=== PATIENT | female | born 1970 | race Hispanic/Latino ===

== ENCOUNTER 2016-10-09 20:12 | Emergency (ER) | payer MEDICAID, OTHER ==
[2016-10-09 20:13] VITALS: BMI 62.6
[2016-10-09 20:19] VITALS: RESP 16; TEMP 98.6
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
[2016-10-09 23:09] VITALS: BP 118/63; PULSE 85; O2SAT 99
--- NOTE | 2016-10-10 10:09 | RAD ---
HISTORY: pain COMPARISON: No prior. FINDINGS: BONES: For purposes of this report T12 will be considered with rudimentary ribs. A right C7 cervical rib is noted. No vertebral body fractures suggested. Trace mid thoracic segmental endplate ridging noted. DISC SPACES: Normal. SOFT TISSUES: Normal. OTHER FINDINGS: None. IMPRESSION: No fracture or lytic lesion. Minimal mid thoracic segmental spondylosis.
--- NOTE | 2016-10-10 14:49 | RAD ---
PROCEDURE: Cervical Spine Radiographs. HISTORY: Pain. COMPARISON: None. FINDINGS: BONES: Straightening of the normal cervical lordosis. No fracture. Dens Intact. C7 right cervical rib DISC SPACES: Normal. SOFT TISSUES: Normal. No prevertebral soft tissue swelling. OTHER FINDINGS: None. IMPRESSION: No fracture or subluxation. Mild cervical spine straightening consistent with spasm and/or positioning. Right C7 cervical rib
== END 2016-10-09 23:09 | disposition home or self-care (01) ==
LOC: ED 20:12
DX: S16.1XXA Strain of muscle, fascia and tendon at neck level, initial encounter (principal); V49.9XXA Car occupant (driver) (passenger) injured in unspecified traffic accident, initial encounter; M54.6 Pain in thoracic spine
CPT/HCPCS: 72040; 72070; 96372; 99285; J1885

== ENCOUNTER 2017-08-08 15:18 | Emergency (ER) | payer MEDICAID ==
[2017-08-08 15:45] VITALS: RESP 18; BMI 33.0
[2017-08-08] MEDS ORDERED: Multivitamin (MVI) 10 ML, Thiamine 100 MG, Folic Acid 1 MG in Sodium Chloride 0.9% 1,00... IV ONE (16:02)
[2017-08-08] MEDS ORDERED: Sodium Chloride 0.9% 500 ML IV STA (16:02)
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
[2017-08-08 17:02] LABS: PH,URINE 6.5 (4.7-8.0); URINE BILIRUBIN NEGATIVE (NEGATIVE); URINE BLOOD NEGATIVE (NEGATIVE); URINE GLUCOSE (UA) NEGATIVE (NEGATIVE); URINE LEUKOCYTE ESTERASE TRACE Leu/uL (NEGATIVE); URINE PROTEIN NEGATIVE mg/dL (<30 mg/dL); URINE UROBILINOGEN 0.2 E.U./dL (<1 E.U./dL)
[2017-08-08 17:09] LABS: URINE APPEARANCE CLEAR (CLEAR); URINE COLOR YELLOW (YELLOW)
[2017-08-08 17:14] LABS: URINE RBC NEGATIVE /hpf (0-2)
[2017-08-08 17:15] LABS: URINE BACTERIA FEW (NEG)
[2017-08-08 17:21] LABS: VENOUS BLOOD GAS PO2 68 mm/Hg (30-55); VENOUS BLOOD PH 7.46 (7.32-7.43)
[2017-08-08 17:21] LABS: BENZODIAZEPINES, UR NEGATIVE (NEGATIVE)
[2017-08-08 17:23] LABS: BASO # 0.03 K/mm3 (0.0-2.0); BASO % 0.5 % (0.0-3.0); EOS # 0.2 (0.0-0.7); EOS % 2.8 % (1.5-5.0); GRAN # 2.76 (1.4-6.5); GRAN % 48.4 % (50.0-68.0); LYMPH # 2.4 (1.2-3.4); LYMPH % 42.3 % (22.0-35.0); MEAN CELL VOLUME 90.4 fl (80.0-105.0); MEAN CORPUSCULAR HEMOGLOBIN 30.2 pg (25.0-35.0); MEAN CORPUSCULAR HGB CONC 33.4 g/dl (31.0-37.0); MEAN PLATELET VOLUME 10.3 fl (7.0-11.0); MONO # 0.3 (0.1-0.6); RBC 3.64 10^6/uL (3.5-6.1); RED CELL DISTRIBUTION WIDTH 14.2 % (11.5-14.5); WHITE BLOOD COUNT 5.7 10^3/ul (4.5-11.0)
[2017-08-08] MEDS ORDERED: cefTRIAXone 1 gm 1 GM/100 ML BAG IVPB STA (17:27)
[2017-08-08 17:30] LABS: BARBITURATES, UR NEGATIVE (NEGATIVE); OPIATES, UR NEGATIVE (NEGATIVE); PHENCYCLIDINE, UR NEGATIVE (NEGATIVE)
[2017-08-08 17:36] LABS: ACETAMINOPHEN < 10.0 ug/ml (10.0-20.0); SALICYLATE < 1 mg/dL (2.0-20.0)
[2017-08-08 17:43] LABS: ALB/GLOB RATIO 1.3 (1.1-1.8); ALBUMIN 3.7 g/dL (3.0-4.8); ALT/SGPT 79 U/L (7-56); AST/SGOT 89 U/L (14-36); BLOOD UREA NITROGEN 12 mg/dL (7-21); CALCIUM 8.7 mg/dL (8.4-10.5); GFR AFRICAN-AMERICAN > 60; GFR NON-AFRICAN AMERICAN > 60
--- NOTE | 2017-08-08 17:52 | CARD ---
APPROVED REPORT EKG Measurement Heart [id number] <Conclusion> Normal sinus rhythm Low voltage QRS Cannot rule out Anterior infarct, age undetermined Abnormal ECG
[2017-08-08] MEDS ORDERED: Potassium Chloride 20 mEq ER Tab PO STA (18:14)
[2017-08-08] MEDS ORDERED: Iohexol 350 MG/100 ML VIAL ONE (18:49)
--- NOTE | 2017-08-08 21:40 | ED PDOC ---
Physical Exam Vital Signs Reviewed: Yes Vital Signs Temp Pulse Resp BP Pulse Ox 08/08/17 15:45 98.2 F 89 18 146/77 95 Temperature: Afebrile Blood Pressure: Normal Pulse: Regular Respiratory Rate: Normal Appearance: Positive for: Well-Appearing, Non-Toxic, Comfortable Pain Distress: None Mental Status: Positive for: Alert and Oriented X 3 - Systems Exam Head: Present: Atraumatic, Normocephalic Pupils: Present: PERRL Extroacular Muscles: Present: EOMI Conjunctiva: Present: Normal. No: Icteric Mouth: Present: Moist Mucous Membranes. No: Drooling Neck: Present: Normal Range of Motion. No: Meningeal Signs, MIDLINE TENDERNESS , Paraspinal Tenderness Respiratory/Chest: Present: Clear to Auscultation, Good Air Exchange. No: Respiratory Distress, Accessory Muscle Use Cardiovascular: Present: Regular Rate and Rhythm, Normal S1, S2. No: Murmurs Abdomen: No: Tenderness, Distention, Peritoneal Signs Back: Present: Normal Inspection. No: Midline Tenderness Upper Extremity: Present: Normal Inspection. No: Cyanosis, Edema Lower Extremity: Present: Normal Inspection. No: Edema Neurological: Present: GCS=15, CN II-XII Intact, Speech Normal Skin: Present: Warm, Dry, Normal Color. No: Rashes Psychiatric: Present: Alert, Normal Insight, Depressed Mood (at times tearful but follows command with ease) Medical Decision Making ED Course and Treatment: 08/08/17 19:00 Case endorsed to me by Dr. Ram for pending CT/xray/lab results, awaiting medical clearance and pending final disposition. Patient presented to the Emergency department earlier today complaining of depression, suicidal ideation , dysuria and abdominal pain. Patient is currently resting in bed with no new complaints. 08/08/17 20:58 CT of head reviewed by radiologist reviewed, shows: FINDINGS: Brain: There is mild diffuse cerebral atrophy present, consistent with this patient's age.Areas of decreased attenuation noted within the periventricular and subcortical white matter likely related to chronic microangiopathic ischemic changes given the patient's stated age. No hemorrhage. Ventricles: Unremarkable. No ventriculomegaly. Bones/joints: Unremarkable. No acute fracture. Soft tissues: Unremarkable. Sinuses: Unremarkable as visualized. No acute sinusitis. Mastoid air cells: Unremarkable as visualized. No mastoid effusion. IMPRESSION: No evidence of acute intracranial hemorrhage. 08/08/17 20:58 CT of Abdomen/Pelvis reviewed by radiologist, shows: FINDINGS: Lung bases: Unremarkable. No mass. No consolidation. ABDOMEN: Liver: Hepatic steatosis. Hepatomegaly. Gallbladder and bile ducts: Cholecystectomy, No ductal dilation. Pancreas: Unremarkable. No ductal dilation. Spleen: Unremarkable. No splenomegaly. Adrenals: Unremarkable. Kidneys and ureters: Left renal hypodensity that cannot be accurately characterized on the current examination. No hydronephrosis. Stomach and bowel: Status post gastric bypass. PELVIS: Appendix: No findings to suggest acute appendicitis. Bladder: Partially contracted. Reproductive: 3.9 cm right adnexal cystic structure. 3.6 cm left adnexal cystic structure. ABDOMEN and PELVIS: Intraperitoneal space: Unremarkable. No free air. No drainable fluid collection. Bones/joints spondylosis. No dislocation. Soft tissues: Nodular foci are noted in the subcutaneous tissues of the bilateral lower quadrants. Correlate for subcutaneous injections versus infectious/inflammatory process. Vasculature: Unremarkable. No abdominal aortic aneurysm. Lymph nodes: Unremarkable. No enlarged lymph nodes. IMPRESSION: 1. Hepatic steatosis. Hepatomegaly. 2. 3.9 cm right adnexal cystic structure. 3.6 cm left adnexal cystic structure. 08/09/17 02:30 PES evaluated patient at bedside, believes patient is psychiatrically cleared for discharge. - Lab Interpretations Lab Results: 08/08/17 17:16 08/08/17 17:16 Lab Results 08/08/17 21:40: pO2 71 H, VBG pH 7.43, VBG pCO2 43.0, VBG HCO3 28.5 H, VBG Total CO2 29.8 H, VBG O2 Sat (Calc) 96.4 H, VBG Base Excess 3.7 H, VBG Potassium 3.2 L, Sodium 140.0, Chloride 106.0, Glucose 82, Lactate 1.8, FiO2 21.0, Venous Blood Potassium 3.2 L 08/08/17 17:16: pO2 68 H, VBG pH 7.46 H, VBG pCO2 43.0, VBG HCO3 30.6 H, VBG Total CO2 31.9 H, VBG O2 Sat (Calc) 94.7 H, VBG Base Excess 6.0 H, VBG Potassium 2.9 L, Sodium 142.0, Chloride 106.0, Glucose 98, Lactate 2.3 H, FiO2 21.0, Venous Blood Potassium 2.9 L 08/08/17 17:16: TSH 3rd Generation 1.15, Alcohol, Quantitative 238 H 08/08/17 17:16: Salicylates < 1 L, Acetaminophen < 10.0 L 08/08/17 17:16: Sodium 144, Chloride 101, Potassium 3.0 L, Carbon Dioxide 28, Anion Gap 18, BUN 12, Creatinine 0.4 L, Est GFR ( Amer) > 60, Est GFR ( Non-Af Amer) > 60, Random Glucose 97, Calcium 8.7, Magnesium 1.6 L, Total Bilirubin 0.4, AST 89 H, ALT 79 H, Alkaline Phosphatase 49, Total Protein 6.7, Albumin 3.7, Globulin 3.0, Albumin/Globulin Ratio 1.3 08/08/17 17:16: WBC 5.7 D, RBC 3.64, Hgb 11.0 L, Hct 32.9 L, MCV 90.4, MCH 30.2 , MCHC 33.4, RDW 14.2, Plt Count 86 L, MPV 10.3, Gran % 48.4 L, Lymph % (Auto) 42.3 H, King % (Auto) 6.0, Eos % (Auto) 2.8, Baso % (Auto) 0.5, Gran # 2.76, Lymph # (Auto) 2.4, King # (Auto) 0.3, Eos # (Auto) 0.2, Baso # (Auto) 0.03 08/08/17 16:53: Urine Opiates Screen Negative, Urine Methadone Screen Negative, Ur Barbiturates Screen Negative, Ur Phencyclidine Scrn Negative, Ur Amphetamines Screen Negative, U Benzodiazepines Scrn Negative, U Oth Cocaine Metabols Negative, U Cannabinoids Screen Negative 08/08/17 16:53: Urine Color Yellow, Urine Appearance Clear, Urine pH 6.5, Ur Specific [place] <= 1.005, Urine Protein Negative, Urine Glucose (UA) Negative, Urine Ketones Negative, Urine Blood Negative, Urine Nitrate Negative, Urine Bilirubin Negative, Urine Urobilinogen 0.2, Ur Leukocyte Esterase Trace H, Urine RBC Negative, Urine WBC 2 - 5, Ur Epithelial Cells 1 - 3, Urine Bacteria Few - RAD Interpretation Radiology Orders: 08/08/17 16:02 HEAD W/O CONTRAST [CT] Stat 08/08/17 16:06 CHEST ONE VIEW [RAD] Stat 08/08/17 16:07 PELVIS ONE VIEW [RAD] Stat 08/08/17 16:08 FOREARM LEFT [RAD] Stat FOREARM RIGHT [RAD] Stat 08/08/17 16:11 ABD & PELVIS IV CONTRAST ONLY [CT] Stat 08/08/17 17:26 FOOT RIGHT 3 VIEWS ROUTINE [RAD] Stat Can Sealer: Radiologist - Medication Orders Current Medication Orders: Discontinued Medications Multivitamins/Vitamin C 10 ml/Thiamine HCl 100 mg/ Folic Acid 1 mg/ Sodium Chloride 1,011.2 mls @ 100 mls/hr IV ONCE ONE Stop: 08/09/17 02:08 Last Admin: 08/08/17 17:16 Dose: 100 mls/hr eMAR Start Stop Document 08/08/17 17:16 SUKH (Rec: 08/08/17 17:17 [id number] Intravenous Solution Start Date 08/08/17 Start Time 17:17 Sodium Chloride (Sodium Chloride 0.9%) 500 mls @ 1,000 mls/hr IV .Q30M STA Stop: 08/08/17 16:31 Last Admin: 08/08/17 17:00 Dose: 1,000 mls/hr eMAR Start Stop Document 08/08/17 17:00 SUKH (Rec: 08/08/17 17:07 SU[facility] [id number]) Intravenous Solution Start Date 08/08/17 Start Time 17:00 End Date 08/08/17 End time 17:30 Total Infusion Time 30 Ceftriaxone Sodium (Rocephin 1 Gram Ivpb) 1 gm in 100 mls @ 200 mls/hr IVPB STAT STA PRN Reason: Protocol Stop: 08/08/17 17:56 Last Admin: 08/08/17 17:55 Dose: 200 mls/hr eMAR Start Stop Document 08/08/17 17:55 SUKH (Rec: 08/08/17 17:56 SUKH [facility] [id number]) Intravenous Solution Start Date 08/08/17 Start Time 17:56 End Date 08/08/17 End time 18:26 Total Infusion Time 30 Potassium Chloride (K-Dur 20 Meq Er Tab) 40 meq PO STAT STA Stop: 08/08/17 18:15 Last Admin: 06/20/18 18:28 Dose: 40 meq - Scribe Statement The provider has reviewed the documentation as recorded by the Scribe Shea Donato. All medical record entries made by the Opalibe were at my direction and personally dictated by me. I have reviewed the chart and agree that the record accurately reflects my personal performance of the history, physical exam, medical decision making, and the department course for this patient. I have also personally directed, reviewed, and agree with the discharge instructions and disposition. Disposition/Present on Arrival - Present on Arrival Any Indicators Present on Arrival: No History of DVT/PE: No History of Uncontrolled Diabetes: No Urinary Catheter: No History of Decub. Ulcer: No History Surgical Site Infection Following: None - Disposition Have Diagnosis and Disposition been Completed?: Yes Diagnosis: Depression, UTI (urinary tract infection), Suicidal ideation, Alcohol intoxication, Hypokalemia Disposition: HOME/ ROUTINE Disposition Time: 03:00 Condition: STABLE Discharge Instructions (ExitCare): Depression, High Potassium Diet, Alcohol Abuse and Alcoholism (DC) Print Language: HEBREW Referrals: Surendra Killian MD [Primary Care Provider] - Follow up with primary Forms: [employer] (Serbian)
[2017-08-08 21:46] LABS: VENOUS BLOOD GAS BASE EXCESS 3.7 mmol/L (0.0-2.0); VENOUS BLOOD GAS PO2 71 mm/Hg (30-55); VENOUS BLOOD PH 7.43 (7.32-7.43)
[2017-08-09 03:45] VITALS: BP 124/76; PULSE 74; TEMP 98.1; O2SAT 100
--- NOTE | 2017-08-09 08:19 | RAD ---
PROCEDURE: Radiographs of the pelvis. HISTORY: medical clearance COMPARISON: None. FINDINGS: BONES: Pelvic Bones: Unremarkable. Hips: Grossly unremarkable. JOINTS: Sacroiliac Joints: Mild sclerosis about both sacroiliac joints indicating likely degenerative arthritis. Pubic Symphysis: Unremarkable. OTHER FINDINGS: None. IMPRESSION: Probable mild bilateral sacroiliac degenerative arthritis. Otherwise unremarkable.
--- NOTE | 2017-08-09 08:19 | RAD ---
PROCEDURE: Right Foot Radiographs. HISTORY: right 3rd toe pain, ? trauma COMPARISON: None. FINDINGS: BONES: Normal. No fracture. JOINTS: Normal. SOFT TISSUES: Normal. OTHER FINDINGS: None. IMPRESSION: Normal right foot radiographs.
--- NOTE | 2017-08-09 08:20 | RAD ---
PROCEDURE: Radiographs of the Right Forearm HISTORY: SI/depression COMPARISON: None available. TECHNIQUE: Frontal and lateral views obtained. FINDINGS: BONES: No fracture or destructive lesion. JOINT SPACES: Unremarkable. OTHER FINDINGS: None. IMPRESSION: Unremarkable radiographs of the right forearm.
--- NOTE | 2017-08-09 08:20 | RAD ---
PROCEDURE: Radiographs of the Left Forearm HISTORY: self inflicted, SI/depression, r/o fx COMPARISON: None available. TECHNIQUE: Frontal and lateral views obtained. FINDINGS: BONES: No fracture or destructive lesion. JOINT SPACES: Unremarkable. OTHER FINDINGS: None. IMPRESSION: Unremarkable radiographs of the left forearm.
--- NOTE | 2017-08-09 08:20 | RAD ---
PROCEDURE: CHEST RADIOGRAPH, 1 VIEW HISTORY: medical clearance COMPARISON: None available. FINDINGS: LUNGS: Clear. PLEURA: No pneumothorax or pleural fluid seen. CARDIOVASCULAR: Normal. OSSEOUS STRUCTURES: No significant abnormalities. VISUALIZED UPPER ABDOMEN: Normal. OTHER FINDINGS: None. IMPRESSION: No active disease.
--- NOTE | 2017-08-09 08:54 | CT ---
PROCEDURE: CT HEAD WITHOUT CONTRAST. HISTORY: altered, ? trauma vs fall COMPARISON: 06/21/2014 TECHNIQUE: Axial computed tomography images were obtained through the head/brain without intravenous contrast. Radiation dose: Total exam DLP = 896 mGy-cm. This CT exam was performed using one or more of the following dose reduction techniques: Automated exposure control, adjustment of the mA and/or kV according to patient size, and/or use of iterative reconstruction technique. FINDINGS: HEMORRHAGE: No intracranial hemorrhage. BRAIN: No mass effect or edema. No atrophy or chronic microvascular ischemic changes. VENTRICLES: Unremarkable. No hydrocephalus. CALVARIUM: Unremarkable. PARANASAL SINUSES: Unremarkable as visualized. No significant inflammatory changes. MASTOID AIR CELLS: Unremarkable as visualized. No inflammatory changes. OTHER FINDINGS: The report concurs with the preliminary [facility] report IMPRESSION: No acute findings
--- NOTE | 2017-08-09 08:59 | CT ---
PROCEDURE: CT Abdomen and Pelvis with contrast HISTORY: left mid abd pain, ? trauma COMPARISON: None. TECHNIQUE: Contrast dose: 95 cc of Omni 350 Radiation dose: Total exam DLP = 1076 mGy-cm. This CT exam was performed using one or more of the following dose reduction techniques: Automated exposure control, adjustment of the mA and/or kV according to patient size, and/or use of iterative reconstruction technique. FINDINGS: LOWER THORAX: Suture lines in the stomach LIVER: There is severe fatty infiltration of the liver GALLBLADDER AND BILE DUCTS: Gallbladder removed PANCREAS: Unremarkable. No gross lesion or ductal dilatation. SPLEEN: Unremarkable. ADRENALS: Unremarkable. No mass. KIDNEYS AND URETERS: Unremarkable. No hydronephrosis. No solid mass. VASCULATURE: Unremarkable. No aortic aneurysm. BOWEL: Unremarkable. No obstruction. No gross mural thickening. APPENDIX: Normal appendix. PERITONEUM: Unremarkable. No free fluid. No free air. LYMPH NODES: Unremarkable. No enlarged lymph nodes. BLADDER: Unremarkable. REPRODUCTIVE: 4 cm ovarian cysts are seen bilaterally. No evidence of cyst rupture BONES: No acute fracture. OTHER FINDINGS: The report concurs with the preliminary [facility] report IMPRESSION: Severe fatty infiltration of the liver. Bilateral adnexal cysts. No acute intra-abdominal findings
== END 2017-08-09 03:45 | disposition home or self-care (01) ==
LOC: ED 15:18
DX: F32.9 Major depressive disorder, single episode, unspecified (principal); R45.851 Suicidal ideations; N39.0 Urinary tract infection, site not specified; E87.6 Hypokalemia; F10.129 Alcohol abuse with intoxication, unspecified; Y90.7 Blood alcohol level of 200-239 mg/100 ml; I10 Essential (primary) hypertension; Z90.49 Acquired absence of other specified parts of digestive tract
CPT/HCPCS: 70450; 71045; 72170; 73090; 73630; 74177; 80053; 80320; 80324; 80329; 80345; 80346; 80349; 80353; 80358; 80361; 81001; 82803; 83735; 83992; 84443; 85025; 87086; 87181; 93005; 96365; 99285; J0696; J3411; J7030; J7040; Q9967

== ENCOUNTER 2018-01-20 20:57 | Inpatient (IN) | payer MEDICAID ==
--- NOTE | 2018-01-20 21:26 | ED PDOC ---
Arrival/HPI <Roger Nava - Last Filed: 01/20/18 23:47> - General Historian: Patient - History of Present Illness Narrative History of Present Illness (Text): 01/20/18 21:23 47 y/o female, pmh including hypokalemia, psychiatric history including suicidal ideation, biba for overdose on 30 tablets of 50mg trazadone x 5 hours. Pt. stated that she is pissed, been drinking and overdosing on trazadone this evening, found out by the exspouse and called the ambulance, stated that she only vomitted 2 tablets out, trazadone just refilled on yesterday 01/19/2018, no homicidal ideation, no auditory or visual hallucination, no diarrhea, no other complaints other than she feels drowsy, no other medical or psychological complaints. <Feliberto Collins - Last Filed: 01/21/18 00:09> - General Chief Complaint: Substance Abuse Past Medical History - Provider Review Nursing Documentation Reviewed: Yes - Past History Past History: Non-Contributing - Infectious Disease Hx of Infectious Diseases: None - Tetanus Immunization Tetanus Immunization: Unknown - Reproductive Menopause: No - Past Medical History Past Medical History: No Previous - Cardiac Hx Cardiac Disorders: Yes Hx Hypertension: Yes - Neurological Hx Paralysis: No - Hematological/Oncological Hx Blood Transfusions: No - Musculoskeletal/Rheumatological Hx Musculoskeletal Disorders: No - Gastrointestinal Other/Comment: Morbid obesity - Psychiatric Hx Psychophysiologic Disorder: Yes Hx Anxiety: Yes Hx Substance Use: No - Surgical History Hx Cholecystectomy: Yes Hx Gastric Bypass Surgery: Yes (1999) Hx Tubal Ligation: Yes Other/Comment: ablasion - Anesthesia Hx Anesthesia: Yes Hx Anesthesia Reactions: No Hx Malignant Hyperthermia: No - Suicidal Assessment Feels Threatened In Home Enviroment: No <Feliberto Collins - Last Filed: 01/21/18 00:09> Family/Social History - Physician Review Nursing Documentation Reviewed: Yes Family/Social History: Unknown Family HX Smoking Status: Never Smoked Hx Alcohol Use: Yes Frequency of alcohol use: Daily Hx Substance Use: No Hx Substance Use Treatment: No <Feliberto Collins - Last Filed: 01/21/18 00:09> Allergies/Home Meds <Roger Nava - Last Filed: 01/20/18 23:47> <Feliberto Collins - Last Filed: 01/21/18 00:09> Allergies/Adverse Reactions: Allergies No Known Allergies Allergy (Verified 08/08/17 16:01) Home Medications: Home Meds Medication Instructions Recorded Confirmed Unobtainable 08/08/17 08/08/17 Review of Systems - Review of Systems Constitutional: absent: Fatigue, Fevers Eyes: absent: Vision Changes ENT: absent: Hearing Changes Respiratory: absent: SOB, Cough Cardiovascular: absent: Chest Pain Gastrointestinal: absent: Abdominal Pain, Nausea, Vomiting Skin: absent: Rash, Pruritis Neurological: absent: Headache, Dizziness Psychiatric: Other (+suicidal gesture). absent: Anxiety, Depression <Feliberto Collins - Last Filed: 01/21/18 00:09> Physical Exam Vital Signs Temp Pulse Resp BP Pulse Ox 01/20/18 21:02 98 F 90 19 129/52 L 95 <Roger Nava - Last Filed: 01/20/18 23:47> Vital Signs Reviewed: Yes Vital Signs Temp Pulse Resp BP Pulse Ox 01/20/18 21:02 98 F 90 19 129/52 L 95 Temperature: Afebrile Blood Pressure: Hypotensive Pulse: Regular Respiratory Rate: Normal Appearance: Positive for: Well-Appearing, Non-Toxic, Comfortable Pain Distress: None Mental Status: Positive for: Alert and Oriented X 3 - Systems Exam Head: Present: Atraumatic, Normocephalic, Other (no facial bony tenderness or swelling. ). No: Tenderness, Contusion, Swelling, Ecchymosis, Abrasion, Laceration Pupils: Present: PERRL Extroacular Muscles: Present: EOMI Conjunctiva: Present: Normal Ears: Present: NORMAL TM, Normal Canal. No: Erythema Mouth: Present: Moist Mucous Membranes Pharnyx: Present: Normal. No: ERYTHEMA, EXUDATE, TONSILS ENLARGED Nose (External): Present: Atraumatic. No: Abrasion, Contusion, Laceration Nose (Internal): Present: Normal Inspection, No Active Bleeding. No: Rhinorrhea, Septal Hematoma, Epistaxis Neck: Present: Normal Range of Motion, Trachea Midline. No: Meningeal Signs, MIDLINE TENDERNESS, Paraspinal Tenderness, Lymphadenopathy Respiratory/Chest: Present: Clear to Auscultation, Good Air Exchange. No: Respiratory Distress, Accessory Muscle Use Cardiovascular: Present: Regular Rate and Rhythm, Normal S1, S2. No: Murmurs Abdomen: No: Tenderness, Distention, Peritoneal Signs, Rebound, Guarding Back: Present: Normal Inspection. No: CVA Tenderness, Midline Tenderness Upper Extremity: Present: Normal Inspection, Normal ROM, NORMAL PULSES. No: Cyanosis, Edema, Tenderness, Swelling Lower Extremity: Present: Normal Inspection, NORMAL PULSES, Normal ROM, Capillary Refill < 2 s. No: Edema, Tenderness, Swelling, Deformity Neurological: Present: GCS=15, CN II-XII Intact, Speech Normal, Motor Func Grossly Intact, Memory Normal Skin: Present: Warm, Dry, Normal Color. No: Rashes Psychiatric: Present: Alert, Oriented x 3, Depressed Mood, Intoxicated <Feliberto Collins - Last Filed: 01/21/18 00:09> Medical Decision Making - Lab Interpretations Lab Results: 01/20/18 21:25 01/20/18 21:25 Lab Results 01/20/18 21:40: pCO2 38, pO2 71.0 L, HCO3 23.0, ABG pH 7.39, ABG Total CO2 24.2, ABG O2 Saturation 95.8, ABG Base Excess -1.7, ABG Potassium 3.3 L, Glucose 103, Lactate 2.0, FiO2 21.0, Sodium 142.0, Chloride 110.0 H, Arterial Blood Potassium 3.3 L 01/20/18 21:25: Beta HCG, Quant < 2.39 01/20/18 21:25: WBC 4.3 L, RBC 3.61, Hgb 11.1 L, Hct 32.8 L, MCV 90.9, MCH 30.7, MCHC 33.8, RDW 13.6, Plt Count 176, MPV 9.0, Gran % 33.5 L, Lymph % (Auto) 56.0 H, [place] % (Auto) 6.3 H, Eos % (Auto) 3.5, Baso % (Auto) 0.7, Gran # 1.45, Lymph # (Auto) 2.4, [place] # (Auto) 0.3, Eos # (Auto) 0.2, Baso # (Auto) 0.03 01/20/18 21:25: Alcohol, Quantitative 251 H 01/20/18 21:25: Salicylates < 1 L, Acetaminophen < 10.0 L 01/20/18 21:25: Sodium 142, Potassium 3.5 L, Chloride 109 H, Carbon Dioxide 22, Anion Gap 15, BUN 13, Creatinine 0.5 L, Est GFR ( Amer) > 60, Est GFR (Non-Af Amer) > 60, Random Glucose 101, Calcium 8.5, Magnesium 1.6 L, Total Bilirubin 0.2, AST 24, ALT 25, Alkaline Phosphatase 60, Lactate Dehydrogenase 327 L, Total Creatine Kinase 48, Troponin I < 0.01, Total Protein 6.5, Albumin 3.6, Globulin 2.9, Albumin/Globulin Ratio 1.2 - RAD Interpretation Radiology Orders: 01/20/18 21:22 CHEST PORTABLE [RAD] Stat - Medication Orders Current Medication Orders: Sodium Chloride (Sodium Chloride 0.9%) 1,000 mls @ 100 mls/hr IV .Q10H MADY Last Admin: 01/20/18 22:33 Dose: 100 mls/hr eMAR Start Stop Document 01/20/18 22:33 JONelli (Rec: 01/20/18 22:34 JOL [id number]) Intravenous Solution Start Date 01/20/18 Start Time 22:34 Multivitamins/Vitamin C 10 ml/Thiamine HCl 100 mg/ Folic Acid 1 mg/ Dextrose 1,011.2 mls @ 1,000 mls/hr IV .Q1H1M ONE Stop: 01/20/18 23:47 Discontinued Medications Magnesium Sulfate (Magnesium Sulfate 2 Gm/50 Ml Water) 2 gm in 50 mls @ 50 mls/hr IVPB ONCE ONE Stop: 01/20/18 23:46 Potassium Chloride (K-Dur 20 Meq Er Tab) 20 meq PO STAT STA Stop: 01/20/18 22:48 <Roger Nava - Last Filed: 01/20/18 23:47> ED Course and Treatment: 01/20/18 21:27 -labs -ekg -cxr -poison control -PES -one on one -secured entrance monitor -IVF -observe and reassess 01/20/18 22:42 -Serum hcg is negative. -EKG: NSR @ 77 BPM, no ST elevation or depression, no T wave inversion. -CXR: Er wet read: no active disease -ABG: PH 7.39, CO2 38, HCO3 23, no acute significant findings -Labs show no acute findings except potassium 3.5 (potassium chloride 20meq po ordered). -Mg 1.6, low, mg sulfate 2gm ordered -Trop negative -Acetaminophen/salicylate within normal limit -Alcohol 251, IV banana bag ordered -UA ordered and pending result. -UDS ordered and pending result. -Poison control will be notified by Tayla RN -PES contacted. -Pt. needs admission for overdose with psychiatric consult but she is not medically clear at this time, electrolyte correction. She is drowsy at this time and not sure from alcohol or synergic effect from trazadone overdose, concerning for cardiac arrythmia/prolong qt and possible serotonin syndrome. 01/20/18 23:54 -I spoke to the biomedical engineering director and Dr. Woods (ICU caption writer), discussed about the case/labs/radiology results, he will admit the patient and follow up on any pending labs/radiology results. - Critical Care Critical Care Minutes: 30 minutes Narrative Critical Care (Text): 01/20/18 22:43 psychiatric and medical admission, overdose with risk for seizure/coma/hypotension - RAD Interpretation Radiology Orders: 01/20/18 21:22 CHEST PORTABLE [RAD] Stat Magnetic Resonance Technologist: Radiologist - EKG Interpretation EKG Interpretation (Text): 01/20/18 21:29 NSR @ 77 BPM, no ST elevation or depression, no T wave inversion. Interpreted by ED Physician: Yes Type: 12 lead EKG - Medication Orders Current Medication Orders: Sodium Chloride (Sodium Chloride 0.9%) 1,000 mls @ 100 mls/hr IV .Q10H MADY <Feliberto Collins - Last Filed: 01/21/18 00:09> - PA / SEWING LINE BALER / Resident Statement NGUYỄN has reviewed & agrees with the documentation as recorded. NGUYỄN has examined the patient and agrees with the treatment plan. <Roger Nava - Last Filed: 01/20/18 23:47> - PA / SEWING LINE BALER / Resident Statement NGUYỄN has reviewed & agrees with the documentation as recorded. NGUYỄN has examined the patient and agrees with the treatment plan. <Feliberto Collins - Last Filed: 01/21/18 00:09> Disposition/Present on Arrival <Roger Nava - Last Filed: 01/20/18 23:47> - Present on Arrival Any Indicators Present on Arrival: Yes History of DVT/PE: No History of Uncontrolled Diabetes: No Urinary Catheter: No History of Decub. Ulcer: No History Surgical Site Infection Following: None - Disposition Have Diagnosis and Disposition been Completed?: Yes Disposition Time: 22:42 Patient Plan: Admission <Feliberto Collins - Last Filed: 01/21/18 00:09> - Disposition Diagnosis: Overdose, Suicide attempt, Hypomagnesemia, Hypokalemia, Alcohol intoxication, Drowsiness Disposition: HOSPITALIZED Patient Problems: Current Active Problems Problem Status Onset Overdose Acute Suicide attempt Acute Hypomagnesemia Acute Hypokalemia Acute Alcohol intoxication Acute Drowsiness Acute Condition: GUARDED Forms: [employer] ([place]ese)
[2018-01-20 21:47] LABS: ARTERIAL BLOOD GAS O2 SAT 95.8 % (95-98); ARTERIAL BLOOD GAS PCO2 38 mm/Hg (35-45); ARTERIAL BLOOD GAS PH 7.39 (7.35-7.45); ARTERIAL BLOOD GAS TCO2 24.2 mmol.L (22-28)
[2018-01-20 21:48] LABS: ACETAMINOPHEN < 10.0 ug/ml (10.0-20.0); SALICYLATE < 1 mg/dL (2.0-20.0)
[2018-01-20 21:49] LABS: ALB/GLOB RATIO 1.2 (1.1-1.8); ALBUMIN 3.6 g/dL (3.0-4.8); ALT/SGPT 25 U/L (7-56); AST/SGOT 24 U/L (14-36); BASO # 0.03 K/mm3 (0.0-2.0); BASO % 0.7 % (0.0-3.0); BLOOD UREA NITROGEN 13 mg/dL (7-21); CALCIUM 8.5 mg/dL (8.4-10.5); EOS # 0.2 (0.0-0.7); EOS % 3.5 % (1.5-5.0); GFR NON-AFRICAN AMERICAN > 60; GRAN # 1.45 (1.4-6.5); GRAN % 33.5 % (50.0-68.0); HEMOGLOBIN 11.1 g/dL (12.0-16.0); LYMPH # 2.4 (1.2-3.4); MEAN CELL VOLUME 90.9 fl (80.0-105.0); MEAN CORPUSCULAR HEMOGLOBIN 30.7 pg (25.0-35.0); MEAN CORPUSCULAR HGB CONC 33.8 g/dl (31.0-37.0); MONO # 0.3 (0.1-0.6); MONO % 6.3 % (1.0-6.0); RBC 3.61 10^6/uL (3.5-6.1); RED CELL DISTRIBUTION WIDTH 13.6 % (11.5-14.5); WHITE BLOOD COUNT 4.3 10^3/uL (4.5-11.0)
[2018-01-20 22:00] LABS: TROPONIN I < 0.01 ng/mL
[2018-01-20] MEDS: Sodium Chloride 0.9% 1,000 ML IV SCH (22:33)
[2018-01-20] MEDS ORDERED: Multivitamin (MVI) 10 ML, Thiamine 100 MG, Folic Acid 1 MG in Dextrose 5% In Water 1,00... IV ONE (22:47)
[2018-01-20] MEDS ORDERED: Magnesium Sulfate 2 gm/50 ml 2 GM/50 ML BAG IVPB ONE (22:47)
[2018-01-20] MEDS ORDERED: Potassium Chloride 20 mEq ER Tab PO STA (22:47)
--- NOTE | 2018-01-21 00:46 | CP.PCM.HP ---
<Diallo Thompson - Last Filed: 01/21/18 01:10> History of Present Illness - History of Present Illness History of Present Illness: Diallo Thompson, PGY1 H&P for Hospital Service This is a 47 year old female with history of depression and suicide ideation presenting to the ED via EMS for suicidal ideation and trazodone overdose. She states that she has been depressed recently and took approximately 30 tablets of trazodone 50mg at 5pm while at her son's house. She is lethargic on examination and history is limited. She states her last drink was today at had a few sips of alcohol per patient. She denies visual or auditory hallucinations, CP, SOB, fevers, headaches, nausea, vomiting, chills, abdominal pain, back pain, urinary complaints, numbness, tingling, swelling, recent travel, sickness, trauma, and lifestyle changes. 12 point ROS noted here, otherwise unremarkable. PMD: Dr Killian Psych: [facility] PMH: depression, suicide ideation SH: denies smoking and drug use, drinks 3 pints of alcohol per week Sx: hernia repari in 96, gallbladder removal in 95, gastric bypass in 99, tubal ligation in 07 All: NKDA LMP: 2 days ago, denies irregular bleeding Medications: trazodone 50mg, patient denies taking other medications Present on Admission - Present on Admission Any Indicators Present on Admission: No Past Patient History - Infectious Disease Hx of Infectious Diseases: None - Tetanus Immunizations Tetanus Immunization: Unknown - Past Social History Smoking Status: Former Smoker - CARDIAC Hx Cardiac Disorders: Yes Hx Hypertension: Yes - NEUROLOGICAL Hx Paralysis: No - HEMATOLOGICAL/ONCOLOGICAL Hx Blood Transfusions: No - MUSCULOSKELETAL/RHEUMATOLOGICAL Hx Musculoskeletal Disorders: No - GASTROINTESTINAL Other/Comment: Morbid obesity - PSYCHIATRIC Hx Psychophysiologic Disorder: Yes Hx Anxiety: Yes Hx Substance Use: No - SURGICAL HISTORY Hx Cholecystectomy: Yes Hx Gastric Bypass Surgery: Yes (1999) Hx Tubal Ligation: Yes Other/Comment: ablasion - ANESTHESIA Hx Anesthesia: Yes Hx Anesthesia Reactions: No Hx Malignant Hyperthermia: No Meds Allergies/Adverse Reactions: Allergies Allergy/AdvReac Type Severity Reaction Status Date / Time No Known Allergies Allergy Verified 08/08/17 16:01 Physical Exam - Constitutional Appears: No Acute Distress Additional comments: lethargic - Head Exam Head Exam: ATRAUMATIC, NORMAL INSPECTION - Eye Exam Eye Exam: EOMI Pupil Exam: PERRL - ENT Exam ENT Exam: Mucous Membranes Moist - Respiratory Exam Respiratory Exam: Clear to Auscultation Bilateral, NORMAL BREATHING PATTERN. absent: Accessory Muscle Use, Decreased Breath Sounds, Respiratory Distress - Cardiovascular Exam Cardiovascular Exam: REGULAR RHYTHM, +S1, +S2 - GI/Abdominal Exam GI & Abdominal Exam: Normal Bowel Sounds, Soft. absent: Firm, Guarding - Extremities Exam Extremities exam: Positive for: normal inspection, pedal pulses present. Negative for: calf tenderness - Neurological Exam Neurological exam: Alert, CN II-XII Intact, Oriented x3 - Skin Skin Exam: Normal Color, Warm Results - Vital Signs Recent Vital Signs: Last Vital Signs Temp 98 F 01/20/18 21: Pulse 90 01/20/18 21:02 Resp 19 01/20/18 21:02 BP 129/52 L 01/20/18 21:02 Pulse Ox 95 01/20/18 21:02 - Labs Result Diagrams: 01/20/18 21:25 01/20/18 21:25 Labs: Laboratory Results - last 24 hr 01/20/18 01/20/18 01/20/18 21:25 21:25 21:25 WBC RBC Hgb Hct MCV MCH MCHC RDW Plt Count MPV Gran % Lymph % (Auto) [place] % (Auto) Eos % (Auto) Baso % (Auto) Gran # Lymph # (Auto) [place] # (Auto) Eos # (Auto) Baso # (Auto) pCO2 pO2 HCO3 ABG pH ABG Total CO2 ABG O2 Saturation ABG Base Excess ABG Potassium Glucose Lactate FiO2 Sodium 142 Potassium 3.5 L Chloride 109 H Carbon Dioxide 22 Anion Gap 15 BUN 13 Creatinine 0.5 L Est GFR ( Amer) > 60 Est GFR (Non-Af Amer) > 60 Random Glucose 101 Calcium 8.5 Magnesium 1.6 L Total Bilirubin 0.2 AST 24 ALT 25 Alkaline Phosphatase 60 Lactate Dehydrogenase 327 L Total Creatine Kinase 48 Troponin I < 0.01 Total Protein 6.5 Albumin 3.6 Globulin 2.9 Albumin/Globulin Ratio 1.2 Beta HCG, Quant Arterial Blood Potassium Salicylates < 1 L Acetaminophen < 10.0 L Alcohol, Quantitative 251 H 01/20/18 01/20/18 01/20/18 21:25 21:25 21:40 WBC 4.3 L RBC 3.61 Hgb 11.1 L Hct 32.8 L MCV 90.9 MCH 30.7 MCHC 33.8 RDW 13.6 Plt Count 176 MPV 9.0 Gran % 33.5 L Lymph % (Auto) 56.0 H [place] % (Auto) 6.3 H Eos % (Auto) 3.5 Baso % (Auto) 0.7 Gran # 1.45 Lymph # (Auto) 2.4 [place] # (Auto) 0.3 Eos # (Auto) 0.2 Baso # (Auto) 0.03 pCO2 38 pO2 71.0 L HCO3 23.0 ABG pH 7.39 ABG Total CO2 24.2 ABG O2 Saturation 95.8 ABG Base Excess -1.7 ABG Potassium 3.3 L Glucose 103 Lactate 2.0 FiO2 21.0 Sodium 142.0 Potassium Chloride 110.0 H Carbon Dioxide Anion Gap BUN Creatinine Est GFR ( Amer) Est GFR (Non-Af Amer) Random Glucose Calcium Magnesium Total Bilirubin AST ALT Alkaline Phosphatase Lactate Dehydrogenase Total Creatine Kinase Troponin I Total Protein Albumin Globulin Albumin/Globulin Ratio Beta HCG, Quant < 2.39 Arterial Blood Potassium 3.3 L Salicylates Acetaminophen Alcohol, Quantitative Assessment & Plan - Assessment and Plan (Free Text) Assessment: This is a 47 year old female with history of depression and suicide ideation presenting to the ED via EMS for suicidal ideation and trazodone overdose. Plan: Neuro/psych: -maintain normothermia -per poison control recommendations, will monitor for elevated body temperature due to potential for serotonin syndrome. If elevated, will externally cool -AAO x3, moving extremities spontaneously past midline -1:1 sitter -vitals/neuro check/aspiration/fall/seizure precautions -UDS pending -psych on consult, Dr. Basurto Cardio: -maintain MAP>65 -will monitor vitals including HR and BP closely -will monitor QTc on serial EKGs, per poison control recommendations -EKG on admission showed NSR @ [address]/T changes Lungs: -SaO2 >90% -supplementary O2 PRN -CXR showed no active disease, f/u official read Renal: -maintain euvolemia -avoid nephrotoxic agents, hypochloremia -Mg and K low on admission, repleted. F/u AM labs -BUN/Cr 13/0.5, unremarkable -ABG reads pH/pO2/pCO2/bicarb of 7.39/71/38/22, unremarkable Heme: -Hg is 11.1, will monitor. Normocytic anemia -DVT ppx with VTE Endo: -maintain euglycemia -alcohol level elevated at 251 -CIWA protocol, ativan prn for agitation -continue NS @ 100, folic acid, thiamine ID: -WBC is WNL, afebrile GI: -NPO diet for now -GI prophylaxis with pepcid Patient seen and discussed with attending, Dr. Woods <Rosalba Woods - Last Filed: 01/21/18 06:12> Results - Vital Signs Recent Vital Signs: Last Vital Signs Temp 99 F 01/21/18 01:35 Pulse 83 01/21/18 04:30 Resp 15 01/21/18 04:30 BP 109/61 01/21/18 04:00 Pulse Ox 96 01/21/18 04:30 - Labs Result Diagrams: 01/20/18 21:25 01/20/18 21:25 Labs: Laboratory Results - last 24 hr 01/20/18 01/20/18 01/20/18 21:25 21:25 21:25 WBC RBC Hgb Hct MCV MCH MCHC RDW Plt Count MPV Gran % Lymph % (Auto) [place] % (Auto) Eos % (Auto) Baso % (Auto) Gran # Lymph # (Auto) [place] # (Auto) Eos # (Auto) Baso # (Auto) pCO2 pO2 HCO3 ABG pH ABG Total CO2 ABG O2 Saturation ABG Base Excess ABG Potassium Glucose Lactate FiO2 Sodium 142 Potassium 3.5 L Chloride 109 H Carbon Dioxide 22 Anion Gap 15 BUN 13 Creatinine 0.5 L Est GFR ( Amer) > 60 Est GFR (Non-Af Amer) > 60 Random Glucose 101 Calcium 8.5 Magnesium 1.6 L Total Bilirubin 0.2 AST 24 ALT 25 Alkaline Phosphatase 60 Lactate Dehydrogenase 327 L Total Creatine Kinase 48 Troponin I < 0.01 Total Protein 6.5 Albumin 3.6 Globulin 2.9 Albumin/Globulin Ratio 1.2 Beta HCG, Quant Arterial Blood Potassium Salicylates < 1 L Urine Opiates Screen Urine Methadone Screen Acetaminophen < 10.0 L Ur Barbiturates Screen Ur Phencyclidine Scrn Ur Amphetamines Screen U Benzodiazepines Scrn U Oth Cocaine Metabols U Cannabinoids Screen Alcohol, Quantitative 251 H 1201/20/18 01/20/18 21:25 21:25 21:40 WBC 4.3 L RBC 3.61 Hgb 11.1 L Hct 32.8 L MCV 90.9 MCH 30.7 MCHC 33.8 RDW 13.6 Plt Count 176 MPV 9.0 Gran % 33.5 L Lymph % (Auto) 56.0 H [place] % (Auto) 6.3 H Eos % (Auto) 3.5 Baso % (Auto) 0.7 Gran # 1.45 Lymph # (Auto) 2.4 [place] # (Auto) 0.3 Eos # (Auto) 0.2 Baso # (Auto) 0.03 pCO2 38 pO2 71.0 L HCO3 23.0 ABG pH 7.39 ABG Total CO2 24.2 ABG O2 Saturation 95.8 ABG Base Excess -1.7 ABG Potassium 3.3 L Glucose 103 Lactate 2.0 FiO2 21.0 Sodium 142.0 Potassium Chloride 110.0 H Carbon Dioxide Anion Gap BUN Creatinine Est GFR ( Amer) Est GFR (Non-Af Amer) Random Glucose Calcium Magnesium Total Bilirubin AST ALT Alkaline Phosphatase Lactate Dehydrogenase Total Creatine Kinase Troponin I Total Protein Albumin Globulin Albumin/Globulin Ratio Beta HCG, Quant < 2.39 Arterial Blood Potassium 3.3 L Salicylates Urine Opiates Screen Urine Methadone Screen Acetaminophen Ur Barbiturates Screen Ur Phencyclidine Scrn Ur Amphetamines Screen U Benzodiazepines Scrn U Oth Cocaine Metabols U Cannabinoids Screen Alcohol, Quantitative 01/21/18 04:00 WBC RBC Hgb Hct MCV MCH MCHC RDW Plt Count MPV Gran % Lymph % (Auto) [place] % (Auto) Eos % (Auto) Baso % (Auto) Gran # Lymph # (Auto) [place] # (Auto) Eos # (Auto) Baso # (Auto) pCO2 pO2 HCO3 ABG pH ABG Total CO2 ABG O2 Saturation ABG Base Excess ABG Potassium Glucose Lactate FiO2 Sodium Potassium Chloride Carbon Dioxide Anion Gap BUN Creatinine Est GFR ( Amer) Est GFR (Non-Af Amer) Random Glucose Calcium Magnesium Total Bilirubin AST ALT Alkaline Phosphatase Lactate Dehydrogenase Total Creatine Kinase Troponin I Total Protein Albumin Globulin Albumin/Globulin Ratio Beta HCG, Quant Arterial Blood Potassium Salicylates Urine Opiates Screen Negative Urine Methadone Screen Negative Acetaminophen Ur Barbiturates Screen Negative Ur Phencyclidine Scrn Negative Ur Amphetamines Screen Negative U Benzodiazepines Scrn Negative U Oth Cocaine Metabols Negative U Cannabinoids Screen Negative Alcohol, Quantitative Attending/Attestation - Attestation I have personally seen and examined this patient.: Yes I have fully participated in the care of the patient.: Yes I have reviewed all pertinent clinical information: Yes Notes (Text): 01/21/18 06:11 Patient was seen in the ER. Agree with history , physical examination, assessment and plan.
[2018-01-21] MEDS ORDERED: Potassium Chloride 20 mEq ER Tab PO STA (01:34)
[2018-01-21 01:56] VITALS: BMI 30.7
[2018-01-21 06:02] LABS: BARBITURATES, UR NEGATIVE (NEGATIVE); BENZODIAZEPINES, UR NEGATIVE (NEGATIVE); OPIATES, UR NEGATIVE (NEGATIVE); PHENCYCLIDINE, UR NEGATIVE (NEGATIVE)
[2018-01-21 06:18] LABS: BASO # 0.03 K/mm3 (0.0-2.0); BASO % 0.7 % (0.0-3.0); EOS # 0.1 (0.0-0.7); EOS % 2.7 % (1.5-5.0); GRAN # 1.68 (1.4-6.5); GRAN % 41.5 % (50.0-68.0); HEMOGLOBIN 10.8 g/dL (12.0-16.0); LYMPH # 1.8 (1.2-3.4); LYMPH % 44.7 % (22.0-35.0); MEAN CELL VOLUME 91.6 fl (80.0-105.0); MEAN CORPUSCULAR HEMOGLOBIN 31.1 pg (25.0-35.0); MEAN PLATELET VOLUME 8.8 fl (7.0-11.0); MONO # 0.4 (0.1-0.6); MONO % 10.4 % (1.0-6.0); RBC 3.47 10^6/uL (3.5-6.1); RED CELL DISTRIBUTION WIDTH 13.9 % (11.5-14.5); WHITE BLOOD COUNT 4.1 10^3/uL (4.5-11.0)
[2018-01-21 06:26] LABS: ALB/GLOB RATIO 1.2 (1.1-1.8); ALBUMIN 3.3 g/dL (3.0-4.8); ALT/SGPT 24 U/L (7-56); AST/SGOT 26 U/L (14-36); BLOOD UREA NITROGEN 9 mg/dL (7-21); CALCIUM 8.1 mg/dL (8.4-10.5); GFR NON-AFRICAN AMERICAN > 60
[2018-01-21 06:34] LABS: VENOUS BLOOD GAS BASE EXCESS -1.8 mmol/L (0.0-2.0); VENOUS BLOOD GAS PO2 127 mm/Hg (30-55); VENOUS BLOOD PH 7.38 (7.32-7.43)
--- NOTE | 2018-01-21 09:33 | RAD ---
Date of service: 01/20/2018 HISTORY: medical clearance COMPARISON: 08/08/2017 FINDINGS: LUNGS: No active pulmonary disease. PLEURA: No significant pleural effusion identified, no pneumothorax apparent. CARDIOVASCULAR: No aortic atherosclerotic calcification present. Normal cardiac size. No pulmonary vascular congestion. OSSEOUS STRUCTURES: No significant abnormalities. VISUALIZED UPPER ABDOMEN: Normal. OTHER FINDINGS: None. IMPRESSION: No active disease.
[2018-01-21] MEDS ORDERED: Thiamine 100 mg/ml Inj IM SCH (10:00)
[2018-01-21] MEDS: Sodium Chloride 0.9% 1,000 ML IV SCH (10:46)
[2018-01-21] MEDS ORDERED: Magnesium Sulfate 2 gm/50 ml 2 GM/50 ML BAG IVPB ONE (10:52)
--- NOTE | 2018-01-21 11:03 | CARD ---
APPROVED REPORT Date of service: 01/20/2018 EKG Measurement Heart [id number] <Conclusion> Normal sinus rhythm Normal ECG
[2018-01-21] MEDS: Multivitamin With Minerals Tab PO SCH (11:42)
--- NOTE | 2018-01-21 11:52 | CP.CCUPN ---
<Davi Velazquez - Last Filed: 01/21/18 12:05> CCU Subjective - Physician Review Subjective (Free Text): Davi Velazquez DO, PGY1. ICU progress note for Dr Butler Patient seen and examined at bedside. She is AAOx3, depressed mood, responds to questions in full sentences No acute events overnight. Patient denied CP, SOB, palpitations, headache, dizziness, fever, chills, tremors, N/V CCU Objective - Vital Signs / Intake & Output Intake and Output (Last 8hrs): Intake & Output 01/20/18 01/21/18 01/21/18 22:59 06:59 14:59 Intake Total 1100 Output Total 600 Balance 500 Weight 180 lb 185 lb Intake: IV 1000 Left Hand 1000 Oral 100 Output: Urine 600 Urine, Voided 600 Other: Voiding Method Toilet - Physical Exam Head: Positive for: Atraumatic, Normocephalic, Other (no facial bony tenderness or swelling. ). Negative for: Tenderness, Contusion, Swelling, Ecchymosis, Abrasion, Laceration Pupils: Positive for: PERRL Extroacular Muscles: Positive for: EOMI Conjunctiva: Positive for: Normal Ears: Positive for: NORMAL TM, Normal Canal. Negative for: Erythema Mouth: Positive for: Moist Mucous Membranes Pharnyx: Positive for: Normal. Negative for: ERYTHEMA, EXUDATE, TONSILS ENLARGED Nose (External): Positive for: Atraumatic. Negative for: Abrasion, Contusion, Laceration Nose (Internal): Positive for: Normal Inspection, No Active Bleeding. Negative for: Rhinorrhea, Septal Hematoma, Epistaxis Neck: Positive for: Normal Range of Motion, Trachea Midline. Negative for: Meningeal Signs, MIDLINE TENDERNESS, Paraspinal Tenderness, Lymphadenopathy Respiratory/Chest: Positive for: Clear to Auscultation, Good Air Exchange. N egative for: Respiratory Distress, Accessory Muscle Use Cardiovascular: Positive for: Regular Rate and Rhythm, Normal S1, S2. Negative for: Murmurs Abdomen: Negative for: Tenderness, Distention, Peritoneal Signs, Rebound, Guarding Back: Positive for: Normal Inspection. Negative for: CVA Tenderness, Midline Tenderness Upper Extremity: Positive for: Normal Inspection, Normal ROM, NORMAL PULSES. Negative for: Cyanosis, Edema, Tenderness, Swelling Lower Extremity: Positive for: Normal Inspection, NORMAL PULSES, Normal ROM, Capillary Refill < 2 s. Negative for: Edema, Tenderness, Swelling, Deformity Neurological: Positive for: CN II-XII Intact, Speech Normal, Motor Func Grossly Intact, Memory Normal Skin: Positive for: Warm, Dry, Normal Color. Negative for: Rashes Psychiatric: Positive for: Alert, Oriented x 3, Depressed Mood - Medications Active Medications: Active Medications Generic Name Dose Route Start Last Admin Trade Name Freq PRN Reason Stop Dose Admin Famotidine 20 mg 01/21/18 10:00 01/21/18 10:44 Pepcid IVP 20 mg DAILY MADY Administration Folic Acid 1 mg 01/21/18 10:00 01/21/18 11:42 Folic Acid PO 1 mg DAILY MADY Administration Sodium Chloride 1,000 mls @ 100 mls/hr 01/20/18 21:30 01/21/18 10:46 Sodium Chloride 0.9% IV 100 mls/hr .Q10H MADY Administration Magnesium Sulfate 2 gm in 50 mls @ 50 mls/hr 01/21/18 10:52 01/21/18 11:43 Magnesium Sulfate 2 Gm/50 Ml Water IVPB 01/21/18 11:51 50 mls/hr ONCE ONE Administration Lorazepam 2 mg 01/21/18 02:08 Ativan IVP Q4H PRN Symptoms of alcohol withdrawl Protocol Multivitamins/Minerals 1 tab 01/21/18 08:00 01/21/18 11:42 Therapeutic-M Tab PO 1 tab 0800 MADY Administration Thiamine HCl 100 mg 01/21/18 10:00 01/21/18 11:42 Vitamin B1 Tab PO 100 mg DAILY MADY Administration - Patient Studies Lab Studies: Lab Studies 01/21/18 01/21/18 01/21/18 Range/Units 05:50 05:50 05:50 WBC 4.1 L (4.5-11.0) 10^3/uL RBC 3.47 L (3.5-6.1) 10^6/uL Hgb 10.8 L (12.0-16.0) g/dL Hct 31.8 L (36.0-48.0) % MCV 91.6 (80.0-105.0) fl MCH 31.1 (25.0-35.0) pg MCHC 34.0 (31.0-37.0) g/dl RDW 13.9 (11.5-14.5) % Plt Count 178 (120.0-450.0) 10^3/uL MPV 8.8 (7.0-11.0) fl Gran % 41.5 L (50.0-68.0) % Lymph % (Auto) 44.7 H (22.0-35.0) % [place] % (Auto) 10.4 H (1.0-6.0) % Eos % (Auto) 2.7 (1.5-5.0) % Baso % (Auto) 0.7 (0.0-3.0) % Gran # 1.68 (1.4-6.5) Lymph # (Auto) 1.8 (1.2-3.4) [place] # (Auto) 0.4 (0.1-0.6) Eos # (Auto) 0.1 (0.0-0.7) Baso # (Auto) 0.03 (0.0-2.0) K/mm3 pCO2 (35-45) mm/Hg pO2 127 H (80-100) mm/Hg HCO3 (21-28) mmol/L ABG pH (7.35-7.45) ABG Total CO2 (22-28) mmol.L ABG O2 Saturation (95-98) % ABG Base Excess (-2.0-3.0) mmol/L ABG Potassium (3.6-5.2) mmol/L VBG pH 7.38 (7.32-7.43) VBG pCO2 39.0 L (40-60) VBG HCO3 23.1 (21-28) mmol/l VBG Total CO2 24.3 (22-28) mmol.L VBG O2 Sat (Calc) 98.8 H (40-65) % VBG Base Excess -1.8 L (0.0-2.0) mmol/L VBG Potassium 3.6 (3.6-5.2) mmol/L Glucose 82 (65-105) mg/dl Lactate 1.8 (0.7-2.1) mmol/L FiO2 21.0 % Sodium 139.0 140 (132-148) mmol/L Potassium 3.8 (3.6-5.0) mmol/L Chloride 108.0 H 110 H (98-107) mmol/L Carbon Dioxide 23 (21-33) mmol/L Anion Gap 11 (10-20) BUN 9 (7-21) mg/dL Creatinine 0.5 L (0.7-1.2) mg/dl Est GFR ( Amer) > 60 Est GFR (Non-Af Amer) > 60 Random Glucose 84 (70-110) mg/dL Calcium 8.1 L (8.4-10.5) mg/dL Phosphorus 3.5 (2.5-4.5) mg/dL Magnesium 1.7 (1.7-2.2) mg/dL Total Bilirubin 0.4 (0.2-1.3) mg/dL AST 26 (14-36) U/L ALT 24 (7-56) U/L Alkaline Phosphatase 52 (38-126) U/L Lactate Dehydrogenase (333-699) U/L Total Creatine Kinase (35-230) U/L Troponin I ng/mL Total Protein 6.0 (5.8-8.3) g/dL Albumin 3.3 (3.0-4.8) g/dL Globulin 2.8 gm/dL Albumin/Globulin Ratio 1.2 (1.1-1.8) Beta HCG, Quant (0-6.15) mIU/mL Arterial Blood Potassium (3.6-5.2) mmol/L Venous Blood Potassium 3.6 (3.6-5.2) mmol/L Salicylates (2.0-20.0) mg/dL Urine Opiates Screen (NEGATIVE) Urine Methadone Screen (NEGATIVE) Acetaminophen (10.0-20.0) ug/ml Ur Barbiturates Screen (NEGATIVE) Ur Phencyclidine Scrn (NEGATIVE) Ur Amphetamines Screen (NEGATIVE) U Benzodiazepines Scrn (NEGATIVE) U Oth Cocaine Metabols (NEGATIVE) U Cannabinoids Screen (NEGATIVE) Alcohol, Quantitative (0-10) mg/dL 01/21/18 01/20/18 01/20/18 Range/Units 04:00 21:40 21:25 WBC (4.5-11.0) 10^3/uL RBC (3.5-6.1) 10^6/uL Hgb (12.0-16.0) g/dL Hct (36.0-48.0) % MCV (80.0-105.0) fl MCH (25.0-35.0) pg MCHC (31.0-37.0) g/dl RDW (11.5-14.5) % Plt Count (120.0-450.0) 10^3/uL MPV (7.0-11.0) fl Gran % (50.0-68.0) % Lymph % (Auto) (22.0-35.0) % [place] % (Auto) (1.0-6.0) % Eos % (Auto) (1.5-5.0) % Baso % (Auto) (0.0-3.0) % Gran # (1.4-6.5) Lymph # (Auto) (1.2-3.4) [place] # (Auto) (0.1-0.6) Eos # (Auto) (0.0-0.7) Baso # (Auto) (0.0-2.0) K/mm3 pCO2 38 (35-45) mm/Hg pO2 71.0 L (80-100) mm/Hg HCO3 23.0 (21-28) mmol/L ABG pH 7.39 (7.35-7.45) ABG Total CO2 24.2 (22-28) mmol.L ABG O2 Saturation 95.8 (95-98) % ABG Base Excess -1.7 (-2.0-3.0) mmol/L ABG Potassium 3.3 L (3.6-5.2) mmol/L VBG pH (7.32-7.43) VBG pCO2 (40-60) VBG HCO3 (21-28) mmol/l VBG Total CO2 (22-28) mmol.L VBG O2 Sat (Calc) (40-65) % VBG Base Excess (0.0-2.0) mmol/L VBG Potassium (3.6-5.2) mmol/L Glucose 103 (65-105) mg/dl Lactate 2.0 (0.7-2.1) mmol/L FiO2 21.0 % Sodium 142.0 (132-148) mmol/L Potassium (3.6-5.0) mmol/L Chloride 110.0 H (98-107) mmol/L Carbon Dioxide (21-33) mmol/L Anion Gap (10-20) BUN (7-21) mg/dL Creatinine (0.7-1.2) mg/dl Est GFR ( Amer) Est GFR (Non-Af Amer) Random Glucose (70-110) mg/dL Calcium (8.4-10.5) mg/dL Phosphorus (2.5-4.5) mg/dL Magnesium (1.7-2.2) mg/dL Total Bilirubin (0.2-1.3) mg/dL AST (14-36) U/L ALT (7-56) U/L Alkaline Phosphatase (38-126) U/L Lactate Dehydrogenase (333-699) U/L Total Creatine Kinase (35-230) U/L Troponin I ng/mL Total Protein (5.8-8.3) g/dL Albumin (3.0-4.8) g/dL Globulin gm/dL Albumin/Globulin Ratio (1.1-1.8) Beta HCG, Quant < 2.39 (0-6.15) mIU/mL Arterial Blood Potassium 3.3 L (3.6-5.2) mmol/L Venous Blood Potassium (3.6-5.2) mmol/L Salicylates (2.0-20.0) mg/dL Urine Opiates Screen Negative (NEGATIVE) Urine Methadone Screen Negative (NEGATIVE) Acetaminophen (10.0-20.0) ug/ml Ur Barbiturates Screen Negative (NEGATIVE) Ur Phencyclidine Scrn Negative (NEGATIVE) Ur Amphetamines Screen Negative (NEGATIVE) U Benzodiazepines Scrn Negative (NEGATIVE) U Oth Cocaine Metabols Negative (NEGATIVE) U Cannabinoids Screen Negative (NEGATIVE) Alcohol, Quantitative (0-10) mg/dL 01/20/18 01/20/18 01/20/18 Range/Units 21:25 21:25 21:25 WBC 4.3 L (4.5-11.0) 10^3/uL RBC 3.61 (3.5-6.1) 10^6/uL Hgb 11.1 L (12.0-16.0) g/dL Hct 32.8 L (36.0-48.0) % MCV 90.9 (80.0-105.0) fl MCH 30.7 (25.0-35.0) pg MCHC 33.8 (31.0-37.0) g/dl RDW 13.6 (11.5-14.5) % Plt Count 176 (120.0-450.0) 10^3/uL MPV 9.0 (7.0-11.0) fl Gran % 33.5 L (50.0-68.0) % Lymph % (Auto) 56.0 H (22.0-35.0) % [place] % (Auto) 6.3 H (1.0-6.0) % Eos % (Auto) 3.5 (1.5-5.0) % Baso % (Auto) 0.7 (0.0-3.0) % Gran # 1.45 (1.4-6.5) Lymph # (Auto) 2.4 (1.2-3.4) [place] # (Auto) 0.3 (0.1-0.6) Eos # (Auto) 0.2 (0.0-0.7) Baso # (Auto) 0.03 (0.0-2.0) K/mm3 pCO2 (35-45) mm/Hg pO2 (80-100) mm/Hg HCO3 (21-28) mmol/L ABG pH (7.35-7.45) ABG Total CO2 (22-28) mmol.L ABG O2 Saturation (95-98) % ABG Base Excess (-2.0-3.0) mmol/L ABG Potassium (3.6-5.2) mmol/L VBG pH (7.32-7.43) VBG pCO2 (40-60) VBG HCO3 (21-28) mmol/l VBG Total CO2 (22-28) mmol.L VBG O2 Sat (Calc) (40-65) % VBG Base Excess (0.0-2.0) mmol/L VBG Potassium (3.6-5.2) mmol/L Glucose (65-105) mg/dl Lactate (0.7-2.1) mmol/L FiO2 % Sodium (132-148) mmol/L Potassium (3.6-5.0) mmol/L Chloride (98-107) mmol/L Carbon Dioxide (21-33) mmol/L Anion Gap (10-20) BUN (7-21) mg/dL Creatinine (0.7-1.2) mg/dl Est GFR ( Amer) Est GFR (Non-Af Amer) Random Glucose (70-110) mg/dL Calcium (8.4-10.5) mg/dL Phosphorus (2.5-4.5) mg/dL Magnesium (1.7-2.2) mg/dL Total Bilirubin (0.2-1.3) mg/dL AST (14-36) U/L ALT (7-56) U/L Alkaline Phosphatase (38-126) U/L Lactate Dehydrogenase (333-699) U/L Total Creatine Kinase (35-230) U/L Troponin I ng/mL Total Protein (5.8-8.3) g/dL Albumin (3.0-4.8) g/dL Globulin gm/dL Albumin/Globulin Ratio (1.1-1.8) Beta HCG, Quant (0-6.15) mIU/mL Arterial Blood Potassium (3.6-5.2) mmol/L Venous Blood Potassium (3.6-5.2) mmol/L Salicylates < 1 L (2.0-20.0) mg/dL Urine Opiates Screen (NEGATIVE) Urine Methadone Screen (NEGATIVE) Acetaminophen < 10.0 L (10.0-20.0) ug/ml Ur Barbiturates Screen (NEGATIVE) Ur Phencyclidine Scrn (NEGATIVE) Ur Amphetamines Screen (NEGATIVE) U Benzodiazepines Scrn (NEGATIVE) U Oth Cocaine Metabols (NEGATIVE) U Cannabinoids Screen (NEGATIVE) Alcohol, Quantitative 251 H (0-10) mg/dL 01/20/18 Range/Units 21:25 WBC (4.5-11.0) 10^3/uL RBC (3.5-6.1) 10^6/uL Hgb (12.0-16.0) g/dL Hct (36.0-48.0) % MCV (80.0-105.0) fl MCH (25.0-35.0) pg MCHC (31.0-37.0) g/dl RDW (11.5-14.5) % Plt Count (120.0-450.0) 10^3/uL MPV (7.0-11.0) fl Gran % (50.0-68.0) % Lymph % (Auto) (22.0-35.0) % [place] % (Auto) (1.0-6.0) % Eos % (Auto) (1.5-5.0) % Baso % (Auto) (0.0-3.0) % Gran # (1.4-6.5) Lymph # (Auto) (1.2-3.4) [place] # (Auto) (0.1-0.6) Eos # (Auto) (0.0-0.7) Baso # (Auto) (0.0-2.0) K/mm3 pCO2 (35-45) mm/Hg pO2 (80-100) mm/Hg HCO3 (21-28) mmol/L ABG pH (7.35-7.45) ABG Total CO2 (22-28) mmol.L ABG O2 Saturation (95-98) % ABG Base Excess (-2.0-3.0) mmol/L ABG Potassium (3.6-5.2) mmol/L VBG pH (7.32-7.43) VBG pCO2 (40-60) VBG HCO3 (21-28) mmol/l VBG Total CO2 (22-28) mmol.L VBG O2 Sat (Calc) (40-65) % VBG Base Excess (0.0-2.0) mmol/L VBG Potassium (3.6-5.2) mmol/L Glucose (65-105) mg/dl Lactate (0.7-2.1) mmol/L FiO2 % Sodium 142 (132-148) mmol/L Potassium 3.5 L (3.6-5.0) mmol/L Chloride 109 H (98-107) mmol/L Carbon Dioxide 22 (21-33) mmol/L Anion Gap 15 (10-20) BUN 13 (7-21) mg/dL Creatinine 0.5 L (0.7-1.2) mg/dl Est GFR ( Amer) > 60 Est GFR (Non-Af Amer) > 60 Random Glucose 101 (70-110) mg/dL Calcium 8.5 (8.4-10.5) mg/dL Phosphorus (2.5-4.5) mg/dL Magnesium 1.6 L (1.7-2.2) mg/dL Total Bilirubin 0.2 (0.2-1.3) mg/dL AST 24 (14-36) U/L ALT 25 (7-56) U/L Alkaline Phosphatase 60 (38-126) U/L Lactate Dehydrogenase 327 L (333-699) U/L Total Creatine Kinase 48 (35-230) U/L Troponin I < 0.01 ng/mL Total Protein 6.5 (5.8-8.3) g/dL Albumin 3.6 (3.0-4.8) g/dL Globulin 2.9 gm/dL Albumin/Globulin Ratio 1.2 (1.1-1.8) Beta HCG, Quant (0-6.15) mIU/mL Arterial Blood Potassium (3.6-5.2) mmol/L Venous Blood Potassium (3.6-5.2) mmol/L Salicylates (2.0-20.0) mg/dL Urine Opiates Screen (NEGATIVE) Urine Methadone Screen (NEGATIVE) Acetaminophen (10.0-20.0) ug/ml Ur Barbiturates Screen (NEGATIVE) Ur Phencyclidine Scrn (NEGATIVE) Ur Amphetamines Screen (NEGATIVE) U Benzodiazepines Scrn (NEGATIVE) U Oth Cocaine Metabols (NEGATIVE) U Cannabinoids Screen (NEGATIVE) Alcohol, Quantitative (0-10) mg/dL Laboratory Results - last 24 hr 01/20/18 01/20/18 01/20/18 21:25 21:25 21:25 WBC RBC Hgb Hct MCV MCH MCHC RDW Plt Count MPV Gran % Lymph % (Auto) [place] % (Auto) Eos % (Auto) Baso % (Auto) Gran # Lymph # (Auto) [place] # (Auto) Eos # (Auto) Baso # (Auto) pCO2 pO2 HCO3 ABG pH ABG Total CO2 ABG O2 Saturation ABG Base Excess ABG Potassium VBG pH VBG pCO2 VBG HCO3 VBG Total CO2 VBG O2 Sat (Calc) VBG Base Excess VBG Potassium Glucose Lactate FiO2 Sodium 142 Potassium 3.5 L Chloride 109 H Carbon Dioxide 22 Anion Gap 15 BUN 13 Creatinine 0.5 L Est GFR ( Amer) > 60 Est GFR (Non-Af Amer) > 60 Random Glucose 101 Calcium 8.5 Phosphorus Magnesium 1.6 L Total Bilirubin 0.2 AST 24 ALT 25 Alkaline Phosphatase 60 Lactate Dehydrogenase 327 L Total Creatine Kinase 48 Troponin I < 0.01 Total Protein 6.5 Albumin 3.6 Globulin 2.9 Albumin/Globulin Ratio 1.2 Beta HCG, Quant Arterial Blood Potassium Venous Blood Potassium Salicylates < 1 L Urine Opiates Screen Urine Methadone Screen Acetaminophen < 10.0 L Ur Barbiturates Screen Ur Phencyclidine Scrn Ur Amphetamines Screen U Benzodiazepines Scrn U Oth Cocaine Metabols U Cannabinoids Screen Alcohol, Quantitative 251 H 01/20/18 01/20/18 01/20/18 21:25 21:25 21:40 WBC 4.3 L RBC 3.61 Hgb 11.1 L Hct 32.8 L MCV 90.9 MCH 30.7 MCHC 33.8 RDW 13.6 Plt Count 176 MPV 9.0 Gran % 33.5 L Lymph % (Auto) 56.0 H [place] % (Auto) 6.3 H Eos % (Auto) 3.5 Baso % (Auto) 0.7 Gran # 1.45 Lymph # (Auto) 2.4 [place] # (Auto) 0.3 Eos # (Auto) 0.2 Baso # (Auto) 0.03 pCO2 38 pO2 71.0 L HCO3 23.0 ABG pH 7.39 ABG Total CO2 24.2 ABG O2 Saturation 95.8 ABG Base Excess -1.7 ABG Potassium 3.3 L VBG pH VBG pCO2 VBG HCO3 VBG Total CO2 VBG O2 Sat (Calc) VBG Base Excess VBG Potassium Glucose 103 Lactate 2.0 FiO2 21.0 Sodium 142.0 Potassium Chloride 110.0 H Carbon Dioxide Anion Gap BUN Creatinine Est GFR ( Amer) Est GFR (Non-Af Amer) Random Glucose Calcium Phosphorus Magnesium Total Bilirubin AST ALT Alkaline Phosphatase Lactate Dehydrogenase Total Creatine Kinase Troponin I Total Protein Albumin Globulin Albumin/Globulin Ratio Beta HCG, Quant < 2.39 Arterial Blood Potassium 3.3 L Venous Blood Potassium Salicylates Urine Opiates Screen Urine Methadone Screen Acetaminophen Ur Barbiturates Screen Ur Phencyclidine Scrn Ur Amphetamines Screen U Benzodiazepines Scrn U Oth Cocaine Metabols U Cannabinoids Screen Alcohol, Quantitative 01/21/18 01/21/18 01/21/18 04:00 05:50 05:50 WBC 4.1 L RBC 3.47 L Hgb 10.8 L Hct 31.8 L MCV 91.6 MCH 31.1 MCHC 34.0 RDW 13.9 Plt Count 178 MPV 8.8 Gran % 41.5 L Lymph % (Auto) 44.7 H [place] % (Auto) 10.4 H Eos % (Auto) 2.7 Baso % (Auto) 0.7 Gran # 1.68 Lymph # (Auto) 1.8 [place] # (Auto) 0.4 Eos # (Auto) 0.1 Baso # (Auto) 0.03 pCO2 pO2 HCO3 ABG pH ABG Total CO2 ABG O2 Saturation ABG Base Excess ABG Potassium VBG pH VBG pCO2 VBG HCO3 VBG Total CO2 VBG O2 Sat (Calc) VBG Base Excess VBG Potassium Glucose Lactate FiO2 Sodium 140 Potassium 3.8 Chloride 110 H Carbon Dioxide 23 Anion Gap 11 BUN 9 Creatinine 0.5 L Est GFR ( Amer) > 60 Est GFR (Non-Af Amer) > 60 Random Glucose 84 Calcium 8.1 L Phosphorus 3.5 Magnesium 1.7 Total Bilirubin 0.4 AST 26 ALT 24 Alkaline Phosphatase 52 Lactate Dehydrogenase Total Creatine Kinase Troponin I Total Protein 6.0 Albumin 3.3 Globulin 2.8 Albumin/Globulin Ratio 1.2 Beta HCG, Quant Arterial Blood Potassium Venous Blood Potassium Salicylates Urine Opiates Screen Negative Urine Methadone Screen Negative Acetaminophen Ur Barbiturates Screen Negative Ur Phencyclidine Scrn Negative Ur Amphetamines Screen Negative U Benzodiazepines Scrn Negative U Oth Cocaine Metabols Negative U Cannabinoids Screen Negative Alcohol, Quantitative 01/21/18 05:50 WBC RBC Hgb Hct MCV MCH MCHC RDW Plt Count MPV Gran % Lymph % (Auto) [place] % (Auto) Eos % (Auto) Baso % (Auto) Gran # Lymph # (Auto) [place] # (Auto) Eos # (Auto) Baso # (Auto) pCO2 pO2 127 H HCO3 ABG pH ABG Total CO2 ABG O2 Saturation ABG Base Excess ABG Potassium VBG pH 7.38 VBG pCO2 39.0 L VBG HCO3 23.1 VBG Total CO2 24.3 VBG O2 Sat (Calc) 98.8 H VBG Base Excess -1.8 L VBG Potassium 3.6 Glucose 82 Lactate 1.8 FiO2 21.0 Sodium 139.0 Potassium Chloride 108.0 H Carbon Dioxide Anion Gap BUN Creatinine Est GFR ( Amer) Est GFR (Non-Af Amer) Random Glucose Calcium Phosphorus Magnesium Total Bilirubin AST ALT Alkaline Phosphatase Lactate Dehydrogenase Total Creatine Kinase Troponin I Total Protein Albumin Globulin Albumin/Globulin Ratio Beta HCG, Quant Arterial Blood Potassium Venous Blood Potassium 3.6 Salicylates Urine Opiates Screen Urine Methadone Screen Acetaminophen Ur Barbiturates Screen Ur Phencyclidine Scrn Ur Amphetamines Screen U Benzodiazepines Scrn U Oth Cocaine Metabols U Cannabinoids Screen Alcohol, Quantitative EKG/Cardiology Studies: Cardiology / EKG Studies 01/20/18 21:22 ELECTROCARDIOGRAM Stat Comment: Reason For Exam: medical clearance 01/21/18 07:00 EKG [ELECTROCARDIOGRAM] DAILY Comment: Reason For Exam: drug overdose / qtc prolongation 01/21/18 15:00 ELECTROCARDIOGRAM Routine Comment: Reason For Exam: drug overdose, QTc prolongd 01/22/18 07:00 EKG [ELECTROCARDIOGRAM] DAILY Comment: Reason For Exam: drug overdose / qtc prolongation Critical Care Progress Note - Nutrition Nutrition: Nutrition Category Date Time Status Regular Diet [DIET] Diets 01/21/18 Lunch Ordered Assessment/Plan - Assessment and Plan (Free Text) Assessment: 47 y/o female with PMH of depression, alcohol abuse presented to the ED after trazodone overdose. QTc was 471 on EKG and was admitted to ICU for monitoring in the setting of drug intoxication. Plan: Neuro/psych: -AAO x3 in NAD. depressed mood -s/p trazodone ingestion (30 tabs 50mg each) monitor for serotonin syndrome -continue1:1 sitter -UDS:alcohol 251 -maintain normothermia -seizure/fall precautions -neuro check -psych on consult, Dr. Basurto CVS: -EKG: QTc 471, monitor serial EKG -maintain MAP>65 -monitor VS closely Resp: -CXR: no active disease -mantain O2 sat >90% -O2 PRN -aspiration precautions Renal: -maintain euvolemia -Mg and K repleted -avoid nephrotoxic agents, hypochloremia Heme: -Normocytic anemia -H/H stable Endo: -blood alcohol level 251 -ativan prn for agitation -continue NS @ 100cc/hr -continue folic acid, thiamine, MVI PO -CIWA protocol -maintain euglycemia ID: -WBC is WNL -afebrile, monitor for serotonin syndrome GI: -resume regular diet -GI ppx: pepcid Dispo: Patient is hemodynamically stable, afebrile, tolerating diet and will be transferred to [facility] tday Continue to monitor QTc on serial EKGs <Kevon Butler - Last Filed: 01/21/18 13:05> CCU Objective - Vital Signs / Intake & Output Intake and Output (Last 8hrs): Intake & Output 01/20/18 01/21/18 01/21/18 22:59 06:59 14:59 Intake Total 1100 Output Total 600 Balance 500 Weight 180 lb 185 lb Intake: IV 1000 Left Hand 1000 Oral 100 Output: Urine 600 Urine, Voided 600 Other: Voiding Method Toilet - Medications Active Medications: Active Medications Generic Name Dose Route Start Last Admin Trade Name Freq PRN Reason Stop Dose Admin Famotidine 20 mg 01/22/18 10:00 Pepcid PO DAILY MADY Folic Acid 1 mg 01/21/18 10:00 01/21/18 11:42 Folic Acid PO 1 mg DAILY MADY Administration Sodium Chloride 1,000 mls @ 100 mls/hr 01/20/18 21:30 01/21/18 10:46 Sodium Chloride 0.9% IV 100 mls/hr .Q10H MADY Administration Lorazepam 2 mg 01/21/18 02:08 Ativan IVP Q4H PRN Symptoms of alcohol withdrawl Protocol Multivitamins/Minerals 1 tab 01/21/18 08:00 01/21/18 11:42 Therapeutic-M Tab PO 1 tab 0800 MADY Administration Thiamine HCl 100 mg 01/21/18 10:00 01/21/18 11:42 Vitamin B1 Tab PO 100 mg DAILY MADY Administration - Patient Studies Lab Studies: Lab Studies 01/21/18 01/21/18 01/21/18 Range/Units 05:50 05:50 05:50 WBC 4.1 L (4.5-11.0) 10^3/uL RBC 3.47 L (3.5-6.1) 10^6/uL Hgb 10.8 L (12.0-16.0) g/dL Hct 31.8 L (36.0-48.0) % MCV 91.6 (80.0-105.0) fl MCH 31.1 (25.0-35.0) pg MCHC 34.0 (31.0-37.0) g/dl RDW 13.9 (11.5-14.5) % Plt Count 178 (120.0-450.0) 10^3/uL MPV 8.8 (7.0-11.0) fl Gran % 41.5 L (50.0-68.0) % Lymph % (Auto) 44.7 H (22.0-35.0) % [place] % (Auto) 10.4 H (1.0-6.0) % Eos % (Auto) 2.7 (1.5-5.0) % Baso % (Auto) 0.7 (0.0-3.0) % Gran # 1.68 (1.4-6.5) Lymph # (Auto) 1.8 (1.2-3.4) [place] # (Auto) 0.4 (0.1-0.6) Eos # (Auto) 0.1 (0.0-0.7) Baso # (Auto) 0.03 (0.0-2.0) K/mm3 pCO2 (35-45) mm/Hg pO2 127 H (80-100) mm/Hg HCO3 (21-28) mmol/L ABG pH (7.35-7.45) ABG Total CO2 (22-28) mmol.L ABG O2 Saturation (95-98) % ABG Base Excess (-2.0-3.0) mmol/L ABG Potassium (3.6-5.2) mmol/L VBG pH 7.38 (7.32-7.43) VBG pCO2 39.0 L (40-60) VBG HCO3 23.1 (21-28) mmol/l VBG Total CO2 24.3 (22-28) mmol.L VBG O2 Sat (Calc) 98.8 H (40-65) % VBG Base Excess -1.8 L (0.0-2.0) mmol/L VBG Potassium 3.6 (3.6-5.2) mmol/L Glucose 82 (65-105) mg/dl Lactate 1.8 (0.7-2.1) mmol/L FiO2 21.0 % Sodium 139.0 140 (132-148) mmol/L Potassium 3.8 (3.6-5.0) mmol/L Chloride 108.0 H 110 H (98-107) mmol/L Carbon Dioxide 23 (21-33) mmol/L Anion Gap 11 (10-20) BUN 9 (7-21) mg/dL Creatinine 0.5 L (0.7-1.2) mg/dl Est GFR ( Amer) > 60 Est GFR (Non-Af Amer) > 60 Random Glucose 84 (70-110) mg/dL Calcium 8.1 L (8.4-10.5) mg/dL Phosphorus 3.5 (2.5-4.5) mg/dL Magnesium 1.7 (1.7-2.2) mg/dL Total Bilirubin 0.4 (0.2-1.3) mg/dL AST 26 (14-36) U/L ALT 24 (7-56) U/L Alkaline Phosphatase 52 (38-126) U/L Lactate Dehydrogenase (333-699) U/L Total Creatine Kinase (35-230) U/L Troponin I ng/mL Total Protein 6.0 (5.8-8.3) g/dL Albumin 3.3 (3.0-4.8) g/dL Globulin 2.8 gm/dL Albumin/Globulin Ratio 1.2 (1.1-1.8) Beta HCG, Quant (0-6.15) mIU/mL Arterial Blood Potassium (3.6-5.2) mmol/L Venous Blood Potassium 3.6 (3.6-5.2) mmol/L Salicylates (2.0-20.0) mg/dL Urine Opiates Screen (NEGATIVE) Urine Methadone Screen (NEGATIVE) Acetaminophen (10.0-20.0) ug/ml Ur Barbiturates Screen (NEGATIVE) Ur Phencyclidine Scrn (NEGATIVE) Ur Amphetamines Screen (NEGATIVE) U Benzodiazepines Scrn (NEGATIVE) U Oth Cocaine Metabols (NEGATIVE) U Cannabinoids Screen (NEGATIVE) Alcohol, Quantitative (0-10) mg/dL 01/21/18 01/20/18 01/20/18 Range/Units 04:00 21:40 21:25 WBC (4.5-11.0) 10^3/uL RBC (3.5-6.1) 10^6/uL Hgb (12.0-16.0) g/dL Hct (36.0-48.0) % MCV (80.0-105.0) fl MCH (25.0-35.0) pg MCHC (31.0-37.0) g/dl RDW (11.5-14.5) % Plt Count (120.0-450.0) 10^3/uL MPV (7.0-11.0) fl Gran % (50.0-68.0) % Lymph % (Auto) (22.0-35.0) % [place] % (Auto) (1.0-6.0) % Eos % (Auto) (1.5-5.0) % Baso % (Auto) (0.0-3.0) % Gran # (1.4-6.5) Lymph # (Auto) (1.2-3.4) [place] # (Auto) (0.1-0.6) Eos # (Auto) (0.0-0.7) Baso # (Auto) (0.0-2.0) K/mm3 pCO2 38 (35-45) mm/Hg pO2 71.0 L (80-100) mm/Hg HCO3 23.0 (21-28) mmol/L ABG pH 7.39 (7.35-7.45) ABG Total CO2 24.2 (22-28) mmol.L ABG O2 Saturation 95.8 (95-98) % ABG Base Excess -1.7 (-2.0-3.0) mmol/L ABG Potassium 3.3 L (3.6-5.2) mmol/L VBG pH (7.32-7.43) VBG pCO2 (40-60) VBG HCO3 (21-28) mmol/l VBG Total CO2 (22-28) mmol.L VBG O2 Sat (Calc) (40-65) % VBG Base Excess (0.0-2.0) mmol/L VBG Potassium (3.6-5.2) mmol/L Glucose 103 (65-105) mg/dl Lactate 2.0 (0.7-2.1) mmol/L FiO2 21.0 % Sodium 142.0 (132-148) mmol/L Potassium (3.6-5.0) mmol/L Chloride 110.0 H (98-107) mmol/L Carbon Dioxide (21-33) mmol/L Anion Gap (10-20) BUN (7-21) mg/dL Creatinine (0.7-1.2) mg/dl Est GFR ( Amer) Est GFR (Non-Af Amer) Random Glucose (70-110) mg/dL Calcium (8.4-10.5) mg/dL Phosphorus (2.5-4.5) mg/dL Magnesium (1.7-2.2) mg/dL Total Bilirubin (0.2-1.3) mg/dL AST (14-36) U/L ALT (7-56) U/L Alkaline Phosphatase (38-126) U/L Lactate Dehydrogenase (333-699) U/L Total Creatine Kinase (35-230) U/L Troponin I ng/mL Total Protein (5.8-8.3) g/dL Albumin (3.0-4.8) g/dL Globulin gm/dL Albumin/Globulin Ratio (1.1-1.8) Beta HCG, Quant < 2.39 (0-6.15) mIU/mL Arterial Blood Potassium 3.3 L (3.6-5.2) mmol/L Venous Blood Potassium (3.6-5.2) mmol/L Salicylates (2.0-20.0) mg/dL Urine Opiates Screen Negative (NEGATIVE) Urine Methadone Screen Negative (NEGATIVE) Acetaminophen (10.0-20.0) ug/ml Ur Barbiturates Screen Negative (NEGATIVE) Ur Phencyclidine Scrn Negative (NEGATIVE) Ur Amphetamines Screen Negative (NEGATIVE) U Benzodiazepines Scrn Negative (NEGATIVE) U Oth Cocaine Metabols Negative (NEGATIVE) U Cannabinoids Screen Negative (NEGATIVE) Alcohol, Quantitative (0-10) mg/dL 01/20/18 01/20/18 01/20/18 Range/Units 21:25 21:25 21:25 WBC 4.3 L (4.5-11.0) 10^3/uL RBC 3.61 (3.5-6.1) 10^6/uL Hgb 11.1 L (12.0-16.0) g/dL Hct 32.8 L (36.0-48.0) % MCV 90.9 (80.0-105.0) fl MCH 30.7 (25.0-35.0) pg MCHC 33.8 (31.0-37.0) g/dl RDW 13.6 (11.5-14.5) % Plt Count 176 (120.0-450.0) 10^3/uL MPV 9.0 (7.0-11.0) fl Gran % 33.5 L (50.0-68.0) % Lymph % (Auto) 56.0 H (22.0-35.0) % [place] % (Auto) 6.3 H (1.0-6.0) % Eos % (Auto) 3.5 (1.5-5.0) % Baso % (Auto) 0.7 (0.0-3.0) % Gran # 1.45 (1.4-6.5) Lymph # (Auto) 2.4 (1.2-3.4) [place] # (Auto) 0.3 (0.1-0.6) Eos # (Auto) 0.2 (0.0-0.7) Baso # (Auto) 0.03 (0.0-2.0) K/mm3 pCO2 (35-45) mm/Hg pO2 (80-100) mm/Hg HCO3 (21-28) mmol/L ABG pH (7.35-7.45) ABG Total CO2 (22-28) mmol.L ABG O2 Saturation (95-98) % ABG Base Excess (-2.0-3.0) mmol/L ABG Potassium (3.6-5.2) mmol/L VBG pH (7.32-7.43) VBG pCO2 (40-60) VBG HCO3 (21-28) mmol/l VBG Total CO2 (22-28) mmol.L VBG O2 Sat (Calc) (40-65) % VBG Base Excess (0.0-2.0) mmol/L VBG Potassium (3.6-5.2) mmol/L Glucose (65-105) mg/dl Lactate (0.7-2.1) mmol/L FiO2 % Sodium (132-148) mmol/L Potassium (3.6-5.0) mmol/L Chloride (98-107) mmol/L Carbon Dioxide (21-33) mmol/L Anion Gap (10-20) BUN (7-21) mg/dL Creatinine (0.7-1.2) mg/dl Est GFR ( Amer) Est GFR (Non-Af Amer) Random Glucose (70-110) mg/dL Calcium (8.4-10.5) mg/dL Phosphorus (2.5-4.5) mg/dL Magnesium (1.7-2.2) mg/dL Total Bilirubin (0.2-1.3) mg/dL AST (14-36) U/L ALT (7-56) U/L Alkaline Phosphatase (38-126) U/L Lactate Dehydrogenase (333-699) U/L Total Creatine Kinase (35-230) U/L Troponin I ng/mL Total Protein (5.8-8.3) g/dL Albumin (3.0-4.8) g/dL Globulin gm/dL Albumin/Globulin Ratio (1.1-1.8) Beta HCG, Quant (0-6.15) mIU/mL Arterial Blood Potassium (3.6-5.2) mmol/L Venous Blood Potassium (3.6-5.2) mmol/L Salicylates < 1 L (2.0-20.0) mg/dL Urine Opiates Screen (NEGATIVE) Urine Methadone Screen (NEGATIVE) Acetaminophen < 10.0 L (10.0-20.0) ug/ml Ur Barbiturates Screen (NEGATIVE) Ur Phencyclidine Scrn (NEGATIVE) Ur Amphetamines Screen (NEGATIVE) U Benzodiazepines Scrn (NEGATIVE) U Oth Cocaine Metabols (NEGATIVE) U Cannabinoids Screen (NEGATIVE) Alcohol, Quantitative 251 H (0-10) mg/dL 01/20/18 Range/Units 21:25 WBC (4.5-11.0) 10^3/uL RBC (3.5-6.1) 10^6/uL Hgb (12.0-16.0) g/dL Hct (36.0-48.0) % MCV (80.0-105.0) fl MCH (25.0-35.0) pg MCHC (31.0-37.0) g/dl RDW (11.5-14.5) % Plt Count (120.0-450.0) 10^3/uL MPV (7.0-11.0) fl Gran % (50.0-68.0) % Lymph % (Auto) (22.0-35.0) % [place] % (Auto) (1.0-6.0) % Eos % (Auto) (1.5-5.0) % Baso % (Auto) (0.0-3.0) % Gran # (1.4-6.5) Lymph # (Auto) (1.2-3.4) [place] # (Auto) (0.1-0.6) Eos # (Auto) (0.0-0.7) Baso # (Auto) (0.0-2.0) K/mm3 pCO2 (35-45) mm/Hg pO2 (80-100) mm/Hg HCO3 (21-28) mmol/L ABG pH (7.35-7.45) ABG Total CO2 (22-28) mmol.L ABG O2 Saturation (95-98) % ABG Base Excess (-2.0-3.0) mmol/L ABG Potassium (3.6-5.2) mmol/L VBG pH (7.32-7.43) VBG pCO2 (40-60) VBG HCO3 (21-28) mmol/l VBG Total CO2 (22-28) mmol.L VBG O2 Sat (Calc) (40-65) % VBG Base Excess (0.0-2.0) mmol/L VBG Potassium (3.6-5.2) mmol/L Glucose (65-105) mg/dl Lactate (0.7-2.1) mmol/L FiO2 % Sodium 142 (132-148) mmol/L Potassium 3.5 L (3.6-5.0) mmol/L Chloride 109 H (98-107) mmol/L Carbon Dioxide 22 (21-33) mmol/L Anion Gap 15 (10-20) BUN 13 (7-21) mg/dL Creatinine 0.5 L (0.7-1.2) mg/dl Est GFR ( Amer) > 60 Est GFR (Non-Af Amer) > 60 Random Glucose 101 (70-110) mg/dL Calcium 8.5 (8.4-10.5) mg/dL Phosphorus (2.5-4.5) mg/dL Magnesium 1.6 L (1.7-2.2) mg/dL Total Bilirubin 0.2 (0.2-1.3) mg/dL AST 24 (14-36) U/L ALT 25 (7-56) U/L Alkaline Phosphatase 60 (38-126) U/L Lactate Dehydrogenase 327 L (333-699) U/L Total Creatine Kinase 48 (35-230) U/L Troponin I < 0.01 ng/mL Total Protein 6.5 (5.8-8.3) g/dL Albumin 3.6 (3.0-4.8) g/dL Globulin 2.9 gm/dL Albumin/Globulin Ratio 1.2 (1.1-1.8) Beta HCG, Quant (0-6.15) mIU/mL Arterial Blood Potassium (3.6-5.2) mmol/L Venous Blood Potassium (3.6-5.2) mmol/L Salicylates (2.0-20.0) mg/dL Urine Opiates Screen (NEGATIVE) Urine Methadone Screen (NEGATIVE) Acetaminophen (10.0-20.0) ug/ml Ur Barbiturates Screen (NEGATIVE) Ur Phencyclidine Scrn (NEGATIVE) Ur Amphetamines Screen (NEGATIVE) U Benzodiazepines Scrn (NEGATIVE) U Oth Cocaine Metabols (NEGATIVE) U Cannabinoids Screen (NEGATIVE) Alcohol, Quantitative (0-10) mg/dL Laboratory Results - last 24 hr 01/20/18 01/20/18 01/20/18 21:25 21:25 21:25 WBC RBC Hgb Hct MCV MCH MCHC RDW Plt Count MPV Gran % Lymph % (Auto) [place] % (Auto) Eos % (Auto) Baso % (Auto) Gran # Lymph # (Auto) [place] # (Auto) Eos # (Auto) Baso # (Auto) pCO2 pO2 HCO3 ABG pH ABG Total CO2 ABG O2 Saturation ABG Base Excess ABG Potassium VBG pH VBG pCO2 VBG HCO3 VBG Total CO2 VBG O2 Sat (Calc) VBG Base Excess VBG Potassium Glucose Lactate FiO2 Sodium 142 Potassium 3.5 L Chloride 109 H Carbon Dioxide 22 Anion Gap 15 BUN 13 Creatinine 0.5 L Est GFR ( Amer) > 60 Est GFR (Non-Af Amer) > 60 Random Glucose 101 Calcium 8.5 Phosphorus Magnesium 1.6 L Total Bilirubin 0.2 AST 24 ALT 25 Alkaline Phosphatase 60 Lactate Dehydrogenase 327 L Total Creatine Kinase 48 Troponin I < 0.01 Total Protein 6.5 Albumin 3.6 Globulin 2.9 Albumin/Globulin Ratio 1.2 Beta HCG, Quant Arterial Blood Potassium Venous Blood Potassium Salicylates < 1 L Urine Opiates Screen Urine Methadone Screen Acetaminophen < 10.0 L Ur Barbiturates Screen Ur Phencyclidine Scrn Ur Amphetamines Screen U Benzodiazepines Scrn U Oth Cocaine Metabols U Cannabinoids Screen Alcohol, Quantitative 251 H 01/20/18 01/20/18 01/20/18 21:25 21:25 21:40 WBC 4.3 L RBC 3.61 Hgb 11.1 L Hct 32.8 L MCV 90.9 MCH 30.7 MCHC 33.8 RDW 13.6 Plt Count 176 MPV 9.0 Gran % 33.5 L Lymph % (Auto) 56.0 H [place] % (Auto) 6.3 H Eos % (Auto) 3.5 Baso % (Auto) 0.7 Gran # 1.45 Lymph # (Auto) 2.4 [place] # (Auto) 0.3 Eos # (Auto) 0.2 Baso # (Auto) 0.03 pCO2 38 pO2 71.0 L HCO3 23.0 ABG pH 7.39 ABG Total CO2 24.2 ABG O2 Saturation 95.8 ABG Base Excess -1.7 ABG Potassium 3.3 L VBG pH VBG pCO2 VBG HCO3 VBG Total CO2 VBG O2 Sat (Calc) VBG Base Excess VBG Potassium Glucose 103 Lactate 2.0 FiO2 21.0 Sodium 142.0 Potassium Chloride 110.0 H Carbon Dioxide Anion Gap BUN Creatinine Est GFR ( Amer) Est GFR (Non-Af Amer) Random Glucose Calcium Phosphorus Magnesium Total Bilirubin AST ALT Alkaline Phosphatase Lactate Dehydrogenase Total Creatine Kinase Troponin I Total Protein Albumin Globulin Albumin/Globulin Ratio Beta HCG, Quant < 2.39 Arterial Blood Potassium 3.3 L Venous Blood Potassium Salicylates Urine Opiates Screen Urine Methadone Screen Acetaminophen Ur Barbiturates Screen Ur Phencyclidine Scrn Ur Amphetamines Screen U Benzodiazepines Scrn U Oth Cocaine Metabols U Cannabinoids Screen Alcohol, Quantitative 01/21/18 01/21/18 01/21/18 04:00 05:50 05:50 WBC 4.1 L RBC 3.47 L Hgb 10.8 L Hct 31.8 L MCV 91.6 MCH 31.1 MCHC 34.0 RDW 13.9 Plt Count 178 MPV 8.8 Gran % 41.5 L Lymph % (Auto) 44.7 H [place] % (Auto) 10.4 H Eos % (Auto) 2.7 Baso % (Auto) 0.7 Gran # 1.68 Lymph # (Auto) 1.8 [place] # (Auto) 0.4 Eos # (Auto) 0.1 Baso # (Auto) 0.03 pCO2 pO2 HCO3 ABG pH ABG Total CO2 ABG O2 Saturation ABG Base Excess ABG Potassium VBG pH VBG pCO2 VBG HCO3 VBG Total CO2 VBG O2 Sat (Calc) VBG Base Excess VBG Potassium Glucose Lactate FiO2 Sodium 140 Potassium 3.8 Chloride 110 H Carbon Dioxide 23 Anion Gap 11 BUN 9 Creatinine 0.5 L Est GFR ( Amer) > 60 Est GFR (Non-Af Amer) > 60 Random Glucose 84 Calcium 8.1 L Phosphorus 3.5 Magnesium 1.7 Total Bilirubin 0.4 AST 26 ALT 24 Alkaline Phosphatase 52 Lactate Dehydrogenase Total Creatine Kinase Troponin I Total Protein 6.0 Albumin 3.3 Globulin 2.8 Albumin/Globulin Ratio 1.2 Beta HCG, Quant Arterial Blood Potassium Venous Blood Potassium Salicylates Urine Opiates Screen Negative Urine Methadone Screen Negative Acetaminophen Ur Barbiturates Screen Negative Ur Phencyclidine Scrn Negative Ur Amphetamines Screen Negative U Benzodiazepines Scrn Negative U Oth Cocaine Metabols Negative U Cannabinoids Screen Negative Alcohol, Quantitative 01/21/18 05:50 WBC RBC Hgb Hct MCV MCH MCHC RDW Plt Count MPV Gran % Lymph % (Auto) [place] % (Auto) Eos % (Auto) Baso % (Auto) Gran # Lymph # (Auto) [place] # (Auto) Eos # (Auto) Baso # (Auto) pCO2 pO2 127 H HCO3 ABG pH ABG Total CO2 ABG O2 Saturation ABG Base Excess ABG Potassium VBG pH 7.38 VBG pCO2 39.0 L VBG HCO3 23.1 VBG Total CO2 24.3 VBG O2 Sat (Calc) 98.8 H VBG Base Excess -1.8 L VBG Potassium 3.6 Glucose 82 Lactate 1.8 FiO2 21.0 Sodium 139.0 Potassium Chloride 108.0 H Carbon Dioxide Anion Gap BUN Creatinine Est GFR ( Amer) Est GFR (Non-Af Amer) Random Glucose Calcium Phosphorus Magnesium Total Bilirubin AST ALT Alkaline Phosphatase Lactate Dehydrogenase Total Creatine Kinase Troponin I Total Protein Albumin Globulin Albumin/Globulin Ratio Beta HCG, Quant Arterial Blood Potassium Venous Blood Potassium 3.6 Salicylates Urine Opiates Screen Urine Methadone Screen Acetaminophen Ur Barbiturates Screen Ur Phencyclidine Scrn Ur Amphetamines Screen U Benzodiazepines Scrn U Oth Cocaine Metabols U Cannabinoids Screen Alcohol, Quantitative EKG/Cardiology Studies: Cardiology / EKG Studies 01/20/18 21:22 ELECTROCARDIOGRAM Stat Comment: Reason For Exam: medical clearance 01/21/18 07:00 EKG [ELECTROCARDIOGRAM] DAILY Comment: Reason For Exam: drug overdose / qtc prolongation 01/21/18 15:00 ELECTROCARDIOGRAM Routine Comment: Reason For Exam: drug overdose, QTc prolongd 01/22/18 07:00 EKG [ELECTROCARDIOGRAM] DAILY Comment: Reason For Exam: drug overdose / qtc prolongation Critical Care Progress Note - Nutrition Nutrition: Nutrition Category Date Time Status Regular Diet [DIET] Diets 01/21/18 Lunch Ordered Assessment/Plan - Assessment and Plan (Free Text) Plan: Patient seen and examined, on rounds, with resident, agree with note with following additions/exceptions: Patient is 47yo female with PMHx of depression, admitted with EtOH intoxication and Trazadone overdose. Currently afebrile, BP stable, comfortable in NAD, AAOx3 Labs, imaging, chart, EKG reviewed. QTc 471, started on 1/2NS with 75meq Bicarb' Psych consult placved EtOH abuse Trazadone overdose Depression Recommend: - supp o2 as needed, duonebs PRN - NO ID issues - IVF, 1/2NS 75meq Bicarb - Psych eval - 1:1 obs - FS control - CIWA protocol - Ativan PRN - Thiamine, Folic acid, MVT - reg diet - GI ppx - DVT ppx - Transfer to telemetry
--- NOTE | 2018-01-21 14:31 | CARD ---
APPROVED REPORT Date of service: 01/21/2018 EKG Measurement Heart [id number] <Conclusion> Normal sinus rhythm Normal ECG
--- NOTE | 2018-01-21 17:34 | CARD ---
APPROVED REPORT Date of service: 01/21/2018 EKG Measurement Heart [id number] <Conclusion> Normal sinus rhythm PRRW Early repolarization.
[2018-01-21 18:20] VITALS: RESP 20
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
[2018-01-22 06:27] LABS: BASO # 0.03 K/mm3 (0.0-2.0); BASO % 0.5 % (0.0-3.0); EOS # 0.2 (0.0-0.7); EOS % 2.9 % (1.5-5.0); GRAN # 3.07 (1.4-6.5); GRAN % 52.6 % (50.0-68.0); HEMOGLOBIN 10.6 g/dL (12.0-16.0); LYMPH % 33.7 % (22.0-35.0); MEAN CELL VOLUME 93.1 fl (80.0-105.0); MEAN CORPUSCULAR HEMOGLOBIN 30.5 pg (25.0-35.0); MEAN CORPUSCULAR HGB CONC 32.7 g/dl (31.0-37.0); MEAN PLATELET VOLUME 9.5 fl (7.0-11.0); MONO # 0.6 (0.1-0.6); MONO % 10.3 % (1.0-6.0); RBC 3.48 10^6/uL (3.5-6.1); WHITE BLOOD COUNT 5.8 10^3/uL (4.5-11.0)
[2018-01-22] MEDS ORDERED: Multivitamin With Minerals Tab PO SCH (08:00)
[2018-01-22 08:14] LABS: ALB/GLOB RATIO 1.1 (1.1-1.8); ALT/SGPT 28 U/L (7-56); AST/SGOT 28 U/L (14-36); BLOOD UREA NITROGEN 8 mg/dL (7-21); CALCIUM 8.5 mg/dL (8.4-10.5); GFR NON-AFRICAN AMERICAN > 60
[2018-01-22] MEDS: Multivitamin With Minerals Tab PO SCH (11:02)
[2018-01-22] MEDS: Enoxaparin 40 mg Syringe SC SCH (11:03)
--- NOTE | 2018-01-22 18:49 | CARD ---
APPROVED REPORT Date of service: 01/22/2018 EKG Measurement Heart [id number] <Conclusion> Sinus bradycardia Poor RR progression wave Abnormal ECG
[2018-01-22 18:58] LABS: URINE BILIRUBIN NEGATIVE (NEGATIVE); URINE BLOOD NEGATIVE (NEGATIVE); URINE GLUCOSE (UA) NEGATIVE (NEGATIVE); URINE LEUKOCYTE ESTERASE NEGATIVE Leu/uL (NEGATIVE); URINE PROTEIN NEGATIVE mg/dL (<30 mg/dL); URINE UROBILINOGEN 0.2 E.U./dL (<1 E.U./dL)
[2018-01-22 19:01] LABS: URINE APPEARANCE CLEAR (CLEAR); URINE COLOR YELLOW (YELLOW)
[2018-01-23 07:19] LABS: BASO # 0.02 K/mm3 (0.0-2.0); BASO % 0.5 % (0.0-3.0); EOS # 0.2 (0.0-0.7); EOS % 3.6 % (1.5-5.0); GRAN # 1.13 (1.4-6.5); GRAN % 27.4 % (50.0-68.0); HEMOGLOBIN 10.8 g/dL (12.0-16.0); LYMPH # 2.3 (1.2-3.4); LYMPH % 55.6 % (22.0-35.0); MEAN CELL VOLUME 92.8 fl (80.0-105.0); MEAN CORPUSCULAR HGB CONC 33.4 g/dl (31.0-37.0); MEAN PLATELET VOLUME 9.3 fl (7.0-11.0); MONO # 0.5 (0.1-0.6); MONO % 12.9 % (1.0-6.0); RBC 3.48 10^6/uL (3.5-6.1); RED CELL DISTRIBUTION WIDTH 13.6 % (11.5-14.5); WHITE BLOOD COUNT 4.1 10^3/uL (4.5-11.0)
[2018-01-23 07:30] LABS: ALB/GLOB RATIO 1.1 (1.1-1.8); ALBUMIN 2.9 g/dL (3.0-4.8); ALT/SGPT 26 U/L (7-56); AST/SGOT 19 U/L (14-36); BLOOD UREA NITROGEN 7 mg/dL (7-21); CALCIUM 8.5 mg/dL (8.4-10.5); GFR NON-AFRICAN AMERICAN > 60
[2018-01-23 07:47] VITALS: BP 122/71; TEMP 97.7; O2SAT 97
--- NOTE | 2018-01-23 08:45 | PN ---
DATE: 01/22/2018 SUBJECTIVE: In short, the patient is a 47-year-old white female with a history of depression, anxiety and severe alcohol use disorder. The patient was seen by psychiatrist last week and prescribed trazodone and naltrexone. The patient denied history of suicidal attempts, no psychiatric hospitalization. The patient was admitted to CCU after the patient overdosed on trazodone while intoxicated. The patient was seen by Dr. Mckeon yesterday and this jingle writer took over. The patient was seen and examined today on the medical side. The patient presented to be labile, was crying nonstop, at times loud. The patient reported that she overdosed on trazodone, but she vomited and it was self-induced. The patient reported that she went through a lot; she was arguing with her . The patient seems to be remorseful for her act, but this jingle writer did not have a chance to meet with this patient in the past. The patient reported that she has a long history of alcohol use disorder, but the patient was sober after detox. The patient reported being sober for 3 months, but the patient hurt her knee and she needed to be off naltrexone because she was on pain medication, and after that the patient started to have craving for alcohol. The patient was binge drinking. The worst part that the patient was drinking in front of her younger kids based on the report from the nursing staff and the patient's is not taking the patient back home. This jingle writer offered the patient admission to the psychiatric inpatient unit, but the patient declined that offer. The patient reported that she wants to go home and she wants to follow up with outpatient provider. Agree with Dr. Mckeon that the patient was impulsive, either the patient was intoxicated or not intoxicated, but the patient overdosed on one months' worth of trazodone, which is dangerous. VITAL SIGNS: This jingle writer reviewed vital signs. Temperature 97.9, pulse 101. MEDICATIONS: Reviewed. The patient is on Librium 25 mg p.o. every 4 hours scheduled. The patient is on Lovenox, Pepcid, folic acid, Neurontin 100 mg three times day, Ativan 2 mg IV push every 4 hours p.r.n., multivitamins and thiamine. LABORATORY DATA: Reviewed. Blood gas reviewed. Chemistry reviewed. Toxicology reviewed. Alcohol level was 251. Microbiology reviewed. Reports reviewed. MENTAL STATUS EXAMINATION: The patient presented to be alert, tearful, emotional, labile. Mood described as depressed. Affect was tearful, mood congruent. Thought process seems to be coherent and goal directed. Thought content; the patient denied visual, auditory or tactile hallucinations. Denied paranoid ideation. The patient denied thoughts of harming herself or others, but her actions are confirming opposite. Insight and judgment seems to be limited. Impulses are so far well controlled. IMPRESSION: Rule out major depressive disorder, rule-out alcohol use disorder, binge drinking, rule-out substance-induced mood disorder. PLAN: The patient declined the offer to be admitted to the psychiatric inpatient unit. After medical stabilization, we will initiate the screening process. Meanwhile, one-to-one should be continued. Forklift Supervisor need to be involved if the patient is willing to go to inpatient rehab. The patient's is not accepting the patient back home. Should you have any questions, give me a call back. Thank you very much for letting me participate in the care of your patient. Sherine Li MD
[2018-01-23] MEDS: Multivitamin With Minerals Tab PO SCH (09:03)
[2018-01-23] MEDS: Enoxaparin 40 mg Syringe SC SCH (10:02)
--- NOTE | 2018-01-23 14:02 | CP.PCM.PN ---
<Bryce Armijo - Last Filed: 01/23/18 14:12> Subjective - Date & Time of Evaluation Date of Evaluation: 01/23/18 Time of Evaluation: 14:00 - Subjective Subjective: Psychiatry progress note. Pt seen and examined at bedside. Pt tearful and upset that she has to go to [facility]. Pt is also asking about her belongings including her phone. Pt's partner did not drop them off. Denies HI/SI. Denies auditory/visual hallucinations. Denies. paranoia. No events overnight Objective - Vital Signs/Intake and Output Vital Signs (last 24 hours): Temp Pulse Resp BP Pulse Ox 97.7 F 65 20 122/71 97 01/23/18 06:00 01/23/18 06:00 01/23/18 06:00 01/23/18 06:00 01/23/18 06:00 Intake and Output: 01/23/18 01/23/18 06:59 18:59 Intake Total 540 Balance 540 - Medications Medications: Current Medications Chlordiazepoxide (Librium) 25 mg PO Q4 [facility] Last Admin: 01/23/18 12:27 Dose: 25 mg Enoxaparin Sodium (Lovenox) 40 mg SC DAILY CRIS; Protocol Last Admin: 01/23/18 10:02 Dose: 40 mg Famotidine (Pepcid) 20 mg PO DAILY CRIS Last Admin: 01/23/18 10:03 Dose: 20 mg Folic Acid (Folic Acid) 1 mg PO DAILY CRIS Last Admin: 01/23/18 10:02 Dose: 1 mg Gabapentin (Neurontin) 100 mg PO TID CRIS; Protocol Last Admin: 01/23/18 10:02 Dose: 100 mg Sodium Bicarbonate 75 meq/ (Sodium Chloride) 1,075 mls @ 100 mls/hr IV .[id number] CRIS Last Admin: 01/23/18 00:14 Dose: 100 mls/hr Lorazepam (Ativan) 1 mg IVP Q4H PRN; Protocol PRN Reason: alcohol withdrawal Last Admin: 01/23/18 12:37 Dose: 1 mg Multivitamins/Minerals (Therapeutic-M Tab) 1 tab PO 0800 CRIS Last Admin: 01/23/18 09:03 Dose: 1 tab Thiamine HCl (Vitamin B1 Tab) 100 mg PO DAILY CRIS Last Admin: 01/23/18 10:03 Dose: 100 mg - Labs Labs: 01/23/18 07:00 01/23/18 07:00 - Constitutional Appears: Non-toxic, No Acute Distress - Head Exam Head Exam: ATRAUMATIC, NORMAL INSPECTION - Eye Exam Eye Exam: EOMI - Neck Exam Neck Exam: Normal Inspection - Respiratory Exam Respiratory Exam: NORMAL BREATHING PATTERN - Cardiovascular Exam Cardiovascular Exam: +S1, +S2 - GI/Abdominal Exam GI & Abdominal Exam: Soft - Extremities Exam Extremities Exam: Full ROM, Normal Inspection - Neurological Exam Neurological Exam: Alert, Awake, CN II-XII Intact, Oriented x3 - Psychiatric Exam Psychiatric exam: Depressed - Skin Skin Exam: Dry, Intact, Normal Color, Warm Assessment and Plan - Assessment and Plan (Free Text) Assessment: This is a 47 yo female with hx of depression, anxiety, alcohol use disorder, admitted for overdosing on trazodone. Psych consulted for suicide and overdose attempt. 1. Trazodone overdose/suicidal ideation -continue NS with sodium bicarbonate 75 mEq -pt declined admission to [facility] psych unit -screened by [facility] -accepted into [facility], placement pending -one to one observation -if patient need inpatient rehab, high school social studies teacher should be involved. 2. Alcohol withdrawal -librium 25 po q 4 hrs cris -ativan 1 iv q 4 prn -ciwa protocol -continue multivitamins daily -continue thiamine daily DISPO: pt's not taking her back home; pt refused voluntary admission i [facility] psych unit; pending involuntary placement at [facility] - <Sherine Li - Last Filed: 01/23/18 16:04> Subjective - Subjective Subjective: reviewed and agree with assessment pt was transferred to [facility] ineventfully Objective - Vital Signs/Intake and Output Vital Signs (last 24 hours): Temp Pulse Resp BP Pulse Ox 97.7 F 102 H 20 122/71 97 01/23/18 06:00 01/23/18 10:00 01/23/18 06:00 01/23/18 06:00 01/23/18 06:00 Intake and Output: 01/23/18 01/23/18 06:59 18:59 Intake Total 540 Balance 540 - Labs Labs: 01/23/18 07:00 01/23/18 07:00
[2018-01-23 14:18] VITALS: PULSE 102
--- NOTE | 2018-01-24 15:10 | PN ---
DATE: 01/22/2018 SUBJECTIVE: The patient is sitting in the bed. She has no physical distress. No physical complaint. She is getting help her. She is supposed to get her shots Vivitrol by [facility] this week, otherwise she is stable. PHYSICAL EXAMINATION: VITAL SIGNS: Temperature 97.9, heart rate 69, blood pressure 138/96, respirations 20, saturation 98% on room air. HEAD AND NECK: Normal. No JVD. No thyromegaly. CHEST: Clear bilaterally. CARDIAC: First sound and second sound are normal. ABDOMEN: Soft and nontender. EXTREMITIES: No edema. NEUROLOGICAL: Normal. IMPRESSION AND PLAN: 1. Alcohol use disorder. The patient did drink vodka two pints on Sunday and that binge drinking happened after she has been on naltrexone pills for alcohol, but she stopped this to take some pain medicine for her knee; however, she tended to drink since she is off naltrexone and that led her to drinking the whole two pints of vodka. Came into the hospital for evaluation and treatment and has been also evaluated for trazodone overdose. 2. Suicidal attempts. Psychiatric evaluation Dr. Basurto. She is on intravenous fluid with bicarbonate. We will discontinue that. 3. Anemia. She has a history of gastric bypass surgery and she is 47 years old. She supposed to be followed for that as an outpatient. 4. Chronic arthritis. We will advise to use ibuprofen if needed rather than any narcotics, especially with the Vivitrol. I also started the patient on Neurontin 100 mg three times daily, which should be increased to 300 mg three times daily for alcohol abuse disorder. At this time, continue current medications, Librium, thiamine, intravenous fluid, multivitamins, Neurontin, folic acid, Pepcid and Lovenox 40 mg subcutaneously daily until the patient moves around and do well. Surendra Killian MD
--- NOTE | 2018-01-24 21:53 | DS ---
HISTORY OF PRESENT ILLNESS: The patient is a 47-year-old female, who has a children, lives in [place]. Her was in before. She has alcohol drinking problem for almost 10 plus years. She is originally from [place], she came here and she is staying with her . She has been seen at [facility] with individual psychotherapy and group psychotherapy plus she was started on naltrexone 50 mg daily. The patient seems to be doing okay until she had binge drinking 2 pints of vodka and also associated with that, she did have some talk with her with a situation of being drinking, she got so impulsive and upset and she took trazodone almost 30 tablets of 50 mg total of 1500 mg she took it. She tried to throw up some of it, we do not know how much it is and she was admitted initially to ICU, given IV fluid with bicarb. She was also consulted with the Psychiatry. She was medically treated for her suicidal with medication overdose as well as blood alcohol level was 250 plus range and the patient was observed for alcohol withdrawal symptoms. The patient did have some tremors. No history of seizure before. No aspirations and she was given Ativan p.r.n. plus start the patient on Librium 25 four times a day plus Ativan p.r.n. which calms her anxiety and treat her underlying alcohol withdrawal. Regarding the overdose, the patient , she seems stable. She has no arrhythmia. She seems to be doing very well and consultation with the Psychiatry, Dr. Basurto and her associate seen the patient and recommendation to be transferred to psych floor for further evaluation and treatment, especially with the depression and trazodone and overdose problem. The patient never had any history of suicidal ideation or thoughts in the past as per the patient. The only problem is drinking problem and the family issues with her and based on the drinking also according to the patient. Her physical exam on discharge was stable. She was alert, awake, and oriented x3. She did have some crying, not going to [facility]. She wants to sign AMA, but she is involuntarily committed to [facility] for treatment. She is not withdrawing, hemodynamically stable and no physical complaints. These all mental issues was being little bit agitated and depressed about the situations; however, we are talking to her and gave her some insight about the main reason for the problem, which is a drinking problem which she has been walking towards the right by getting Vivitrol shot once a month and that will help her a lot. PHYSICAL EXAMINATION: Her physical examination on day of discharge which is 01/23/2018: VITAL SIGNS: Temperature 97.7, heart rate 65, blood pressure 122/71, respirations 20, and saturation 97% on room air. HEAD AND NECK: Normal. No JVD. No thyromegaly. CHEST: Clear bilaterally. CARDIAC: First sound and second sound are normal. ABDOMEN: Soft, obese, and nontender. EXTREMITIES: No edema. NEUROLOGIC: Normal. LABORATORY DATA: Shows white count 4.1, hemoglobin 10.8, hematocrit 32.3, and platelets 185. Her chemistry shows sodium 136, potassium 3.7, chloride 102, bicarb 30, BUN 70, and creatinine 0.6. Liver function test is normal. The patient has beta-hCG which is negative. Albumin-globulin was normal. Total protein was normal initially. DISCHARGE DIAGNOSES: Medical problems: 1. Trazodone overdose. 2. Alcohol use disorder. 3. Anemia. 4. Chronic knee osteoarthritis. 5. The patient had first stage obesity, body mass index 30.8. 6. Psychiatric problems; depression. The patient has been on trazodone, ordered that for depression or posttraumatic stress disorder and need further evaluations. 7. Psych dubose, she has suicidal trial and need to be evaluated, possibly due to depression. 8. Family problems related to alcohol use disorder. The patient was seen in [facility] which I discussed with them, the Vivitrol authorization done, the shot is available. She should get it. She last time drank when she came to the hospital one day before coming to the hospital and she should be getting the Vivitrol shot and she has been taking naltrexone as outpatient, also she missed out few days, but the patient will be transferred [facility] of underlying depression and suicidal attempts. We will follow up the patient as outpatient. Surendra Killian MD
== END 2018-01-23 14:15 | DRG 449 ==
LOC: ED 20:57 → ERH 23:58 → CCU 01-21 01:20 → 3RSO 01-21 18:05
PROVIDERS: ADMIT Internal Medicine; ATTEND Internal Medicine
DX: T43.212A Poisoning by selective serotonin and norepinephrine reuptake inhibitors, intentional self-harm, initial encounter (principal); F10.239 Alcohol dependence with withdrawal, unspecified; F10.24 Alcohol dependence with alcohol-induced mood disorder; E87.6 Hypokalemia; F10.229 Alcohol dependence with intoxication, unspecified; E83.42 Hypomagnesemia; F32.9 Major depressive disorder, single episode, unspecified; F41.9 Anxiety disorder, unspecified; I10 Essential (primary) hypertension; Y90.8 Blood alcohol level of 240 mg/100 ml or more; Z87.891 Personal history of nicotine dependence; Z98.84 Bariatric surgery status